=== PATIENT | female | born 1940 | race Caucasian/White ===

== ENCOUNTER 2017-03-19 11:43 | Emergency (ER) | payer MEDICARE, OTHER ==
[~2017-03-19] VITALS: Ht 162.6 cm; Wt 100.7 kg
[~2017-03-19 11:43] MED LIST: BUMETANIDE2 MG PO; BUPROPION XL150 MG PO; BYSTOLIC10 MG; BYSTOLIC10 MG PO; DICLOFENAC-MIS1 EAC2 PO; DOXAZOSIN MESYLA2 MG PO; DULOXETINE HCL30 MG PO; FLUOXETINE HCL40 MG PO; IBUPROFEN600 MG PO; K-TAB ER8 MEQ PO; LORATADINE10 MG PO; METOPROLOL TART25 MG PO; NEXIUM20 MG PO; NORTRIPTYLINE H10 MG PO; SYNTHROID50 MCG PO; VALSARTAN-HCTZ1 EACH PO; VENTOLIN HFA18 GM INH; ZITHROMAX250 MG PO
[2017-03-19] MEDS ORDERED: METHYLPREDNISOLO4 M1 PO (14:17)
[2017-03-19] MEDS ORDERED: NORCO 5-325 TA1 EACH PO (14:17)
[2017-07-24] MEDS ORDERED: WARFARIN SODIUM5 MG PO (10:51)
[2017-07-24] MEDS ORDERED: OMEPRAZOLE20 MG PO (10:51)
[2017-07-24] MEDS ORDERED: FUROSEMIDE20 MG PO (10:52)
[2017-07-24] MEDS ORDERED: METOPROLOL SUC100 MG PO (10:53)
== END 2017-03-19 14:22 | disposition home or self-care (01) ==
LOC: ED 11:43
DX: M16.0 Bilateral primary osteoarthritis of hip (principal); I11.0 Hypertensive heart disease with heart failure; I50.9 Heart failure, unspecified; Z90.710 Acquired absence of both cervix and uterus; Z88.8 Allergy status to other drugs, medicaments and biological substances; Z79.899 Other long term (current) drug therapy
CPT/HCPCS: 73502; 96372; 99283; J1885

== ENCOUNTER 2017-04-01 11:44 | Inpatient (IN) | payer MEDICARE, OTHER ==
[~2017-04-01] VITALS: Ht 162.6 cm; Wt 100.7 kg
[~2017-04-01 11:44] MED LIST changes: +METHYLPREDNISOLO4 M1 PO; +NORCO 5-325 TA1 EACH PO
[2017-04-01] MEDS ORDERED: TOPROL XL25 MG PO (12:02)
[2017-04-01] MEDS ORDERED: METFORMIN HCL500 M1 PO (12:02)
[2017-04-02] MEDS ORDERED: ARTHROTEC 75 M1 EACH PO (16:58)
[2017-04-02] MEDS ORDERED: NEXIUM40 MG PO (17:09)
[2017-04-02] MEDS ORDERED: NEXIUM40 MG (17:09)
[2017-04-02] MEDS ORDERED: PRESERVISION A1 EACH PO (17:09)
--- NOTE | 2017-04-02 22:42 | EKG ---
[facility] [address] [place], [place] [address] Signed Normal sinus rhythm Nonspecific ST and T wave abnormality Abnormal ECG No previous ECGs available Confirmed by NELY NIEVES MD ([id number]) on 04/02/2017 10:41:52 PM Electronically Signed By: NELY NIEVES MD 04/02/17 2242 PATIENT NAME: MAGUE CAMPBELL Electrocardiogram DATE OF : 44 PHYSICIAN: NELY NIEVES MD REPORT #: [id number] REPORT IS CONFIDENTIAL AND NOT TO BE RELEASED WITHOUT AUTHORIZATION
[2017-04-03] MEDS ORDERED: PLAVIX75 MG PO (11:37)
[2017-04-03] MEDS ORDERED: ASPIRIN EC81 MG PO (11:38)
[2017-04-03] MEDS ORDERED: LABETALOL HCL100 MG PO (11:38)
[2017-04-03] MEDS ORDERED: NORVASC5 MG PO (11:39)
[2017-04-03] MEDS ORDERED: LIPITOR20 MG PO (11:40)
[2017-07-24] MEDS ORDERED: WARFARIN SODIUM5 MG PO (10:51)
[2017-07-24] MEDS ORDERED: OMEPRAZOLE20 MG PO (10:51)
[2017-07-24] MEDS ORDERED: FUROSEMIDE20 MG PO (10:52)
[2017-07-24] MEDS ORDERED: METOPROLOL SUC100 MG PO (10:53)
== END 2017-04-03 15:00 | disposition home or self-care (01) | DRG 301 ==
LOC: ED 11:44 → MS 17:49
PROVIDERS: ADMIT Internal Medicine
DX: I77.74 Dissection of vertebral artery (principal); I16.0 Hypertensive urgency; I10 Essential (primary) hypertension; E03.9 Hypothyroidism, unspecified; E11.9 Type 2 diabetes mellitus without complications; E78.5 Hyperlipidemia, unspecified; F39 Unspecified mood [affective] disorder; M25.571 Pain in right ankle and joints of right foot; G89.29 Other chronic pain; R26.89 Other abnormalities of gait and mobility; Z79.84 Long term (current) use of oral hypoglycemic drugs
CPT/HCPCS: 70450; 70496; 70498; 73560; 73610; 80053; 80061; 84484; 85025; 93005; 93010; 97110; 97162; 97166; 97535; J1650; J2405; J7120; Q9967

== ENCOUNTER 2017-10-12 13:33 | Emergency (ER) | payer MEDICARE, OTHER ==
[~2017-10-12] VITALS: Ht 162.6 cm; Wt 100.7 kg
[~2017-10-12 13:33] MED LIST changes: +ARTHROTEC 75 M1 EACH PO; +ASPIRIN EC81 MG PO; +FUROSEMIDE20 MG PO; +LABETALOL HCL100 MG PO; +LIPITOR20 MG PO; +METFORMIN HCL500 M1 PO; +METOPROLOL SUC100 MG PO; +NEXIUM40 MG; +NEXIUM40 MG PO; +NORVASC5 MG PO; +OMEPRAZOLE20 MG PO; +PLAVIX75 MG PO; +PRESERVISION A1 EACH PO; +TOPROL XL25 MG PO; +WARFARIN SODIUM5 MG PO
== END 2017-10-12 15:13 | disposition home or self-care (01) ==
LOC: ED 13:33
DX: S93.401A Sprain of unspecified ligament of right ankle, initial encounter (principal); I11.0 Hypertensive heart disease with heart failure; I50.9 Heart failure, unspecified; Z79.899 Other long term (current) drug therapy; W19.XXXA Unspecified fall, initial encounter
CPT/HCPCS: 73502; 73560; 73610; 99283

== ENCOUNTER 2017-10-22 12:25 | Emergency (ER) | payer MEDICARE, OTHER ==
[~2017-10-22] VITALS: Ht 162.6 cm; Wt 105.0 kg
--- OUTSIDE RECORDS SUMMARY | 2017-10-22 12:30 | XMS ---
PreManage Notification: MAGUE CAMPBELL Security Heel Compressor Events No recent Security Events currently on file CRITERIA MET - [facility] - 2 Visits in 30 Days CARE PROVIDERS Ehsan Jenkins Primary Care Joyce MONAHAN PHONE: Unknown Carl Craven Primary Care Current PHONE: [phone] orchristen Case or Improvement Spec Current PHONE: Unknown Emily Rosales Current Orthopedic Surgery \T\ Fracture Clinic PHONE: Unknown Robert has no Care Guidelines for this patient. Nisha VISIT COUNT (12 MO.) 4 [facility] TOTAL 4 NOTE: Visits indicate total known visits. ED/UCC VISIT TRACKING (12 MO.) 10/22/2017 12:26 [facility] [place] TYPE: Emergency COMPLAINT: - NAUSEA/DIZZINESS 10/12/2017 13:33 [facility] [place] TYPE: Emergency COMPLAINT: - FALL/RT KNEE PAIN DIAGNOSES: - Hypertensive heart disease with heart failure - Other residential (current) drug therapy - Heart failure, unspecified - Unspecified fall, initial encounter - Unspecified injury of right lower leg, initial encounter - Sprain of unspecified ligament of right ankle, initial encounter - Pain in right ankle and joints of right foot 04/01/2017 11:44 [facility] [place] TYPE: Emergency COMPLAINT: - DIZZINESS 03/19/2017 11:44 [facility] [place] TYPE: Emergency COMPLAINT: - R HIP PAIN DIAGNOSES: - Allergy status to other drugs, medicaments and biological substances status - Pain in right hip - Heart failure, unspecified - Acquired absence of both cervix and uterus - Bilateral primary osteoarthritis of hip - Other residential (current) drug therapy - Hypertensive heart disease with heart failure INPATIENT VISIT TRACKING (12 MO.) No inpatient visits to display in this time frame [id number]
--- NOTE | 2017-10-22 15:14 | EKG ---
[facility] [address] [place] [address] Signed Atrial fibrillation with premature ventricular or aberrantly conducted complexes Abnormal ECG When compared with ECG of 01-APR-2017 11:59, Atrial fibrillation has replaced Sinus rhythm Confirmed by NELY NIEVES MD ([id number]) on 10/22/2017 3:13:59 PM Electronically Signed By: NELY NIEVES MD 10/22/17 1514 PATIENT NAME: SHANNANMAGUE GEORGES Electrocardiogram DATE OF : 44 PHYSICIAN: NELY NIEVES MD REPORT #: [id number] REPORT IS CONFIDENTIAL AND NOT TO BE RELEASED WITHOUT AUTHORIZATION
== END 2017-10-22 17:01 | disposition home or self-care (01) ==
LOC: ED 12:25
DX: I77.74 Dissection of vertebral artery (principal); I48.91 Unspecified atrial fibrillation; R42 Dizziness and giddiness; I11.0 Hypertensive heart disease with heart failure; I50.9 Heart failure, unspecified; E11.9 Type 2 diabetes mellitus without complications; Z88.8 Allergy status to other drugs, medicaments and biological substances; Z79.899 Other long term (current) drug therapy; Z79.01 Long term (current) use of anticoagulants; Z79.84 Long term (current) use of oral hypoglycemic drugs
CPT/HCPCS: 70496; 80053; 85025; 85610; 93005; 93010; 96374; 99284; J2405; Q9967

== ENCOUNTER 2018-08-13 15:24 | Emergency (ER) | payer MEDICARE, OTHER ==
[~2018-08-13] VITALS: Ht 154.9 cm; Wt 108.4 kg
[~2018-08-13 15:24] MED LIST changes: +COMBIVENT RESPIM4 GM INH; +DOXYCYCLINE HY100 MG PO; +GABAPENTIN100 MG PO; +PREDNISONE20 MG PO
--- OUTSIDE RECORDS SUMMARY | 2018-08-13 15:26 | XMS ---
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 Care History Medical/Surgical 10/23/2017 [facility] - Patient is currently established with [facility]. If patient is seen in the ED during business hours. Please contact CHWs at [facility]. Care Recommendation: This patient has had 5 or more Emergency Department visits in the last 12 months.\T\nbsp; Patient requires education on the scope and purpose of the ED as an acute care provider not a Primary Care Provider and should not be utilized for chronic conditions.\T\nbsp; These are guidelines and the provider should exercise clinical judgment when providing care. E.D. VISIT COUNT (12 MO.) 4 [facility]. TOTAL 4 NOTE: Visits indicate total known visits. ED/UCC VISIT TRACKING (12 MO.) 08/13/2018 15:25 [facility] [place] TYPE: Emergency COMPLAINT: - RIGHT BIG TOE INFECTION 02/03/2018 15:46 [facility] [place] TYPE: Emergency COMPLAINT: - COUGH,DIFFICULTY BREATHING DIAGNOSES: - Allergy status to other drugs, medicaments and biological substances status - Chronic obstructive pulmonary disease with (acute) exacerbation - Type 2 diabetes mellitus without complications - terminal supervisor (current) use of oral hypoglycemic drugs - Shortness of breath - senior care (current) use of anticoagulants - Hypertensive heart disease with heart failure - Heart failure, unspecified - Other fci (current) drug therapy 10/22/2017 12:26 [facility] [place] TYPE: Emergency COMPLAINT: - NAUSEA/DIZZINESS DIAGNOSES: - senior care (current) use of oral hypoglycemic drugs - Dissection of vertebral artery - Type 2 diabetes mellitus without complications - terminal supervisor (current) use of anticoagulants - Hypertensive heart disease with heart failure - Heart failure, unspecified - Allergy status to other drugs, medicaments and biological substances status - Other long term care pharmacist (current) drug therapy - Unspecified atrial fibrillation - Dizziness and giddiness 10/12/2017 13:[address] [facility] [place] TYPE: Emergency COMPLAINT: - FALL/RT KNEE PAIN DIAGNOSES: - Hypertensive heart disease with heart failure - Other fci (current) drug therapy - Heart failure, unspecified - Unspecified fall, initial encounter - Unspecified injury of right lower leg, initial encounter - Sprain of unspecified ligament of right ankle, initial encounter - Pain in right ankle and joints of right foot INPATIENT VISIT TRACKING (12 MO.) No inpatient visits to display in this time frame [id number]
[2018-08-13] MEDS ORDERED: AUGMENTIN 875-1 EACH PO (16:40)
== END 2018-08-13 16:52 | disposition home or self-care (01) ==
LOC: ED 15:24
DX: L03.031 Cellulitis of right toe (principal); I11.0 Hypertensive heart disease with heart failure; I50.9 Heart failure, unspecified; E11.9 Type 2 diabetes mellitus without complications; Z90.710 Acquired absence of both cervix and uterus; Z88.8 Allergy status to other drugs, medicaments and biological substances; Z79.899 Other long term (current) drug therapy; Z79.01 Long term (current) use of anticoagulants
CPT/HCPCS: 99283

== ENCOUNTER 2021-11-20 08:15 | Emergency (ER) | payer MEDICARE, OTHER, MEDICAID ==
[~2021-11-20] VITALS: Ht 154.9 cm; Wt 108.4 kg
[~2021-11-20 08:15] MED LIST changes: +AUGMENTIN 875-1 EACH PO; +BUPROPION HCL200 MG PO; +KEFLEX500 MG PO; +METFORMIN HCL1000 MG PO; +OXYBUTYNIN CHLO10 MG PO
--- OUTSIDE RECORDS SUMMARY | 2021-11-20 08:18 | XMS ---
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 Care History Medical/Surgical 02/22/2019 [facility] Updated patient contact phone number with Clinic file.\T\nbsp; Patient will call to schedule follow up visit.\T\nbsp; 10/23/2017 [facility] - Patient is currently established with [facility]. If patient is seen in the ED during business hours. Please contact CHWs at [facility]. Care Recommendation: If this patient has had 5 or more Emergency Department visits in the last 12 months.\T\nbsp; Patient will require education on the scope and purpose of the ED as an acute care provider not a Primary Care Provider and should not be utilized for chronic conditions.\T\nbsp; These are guidelines and the provider should exercise clinical judgment when providing care. E.D. VISIT COUNT (12 MO.) 1 [facility] TOTAL 1 NOTE: Visits indicate total known visits. ED/UCC VISIT TRACKING (12 MO.) 11/20/2021 08:16 [facility] [place] TYPE: Emergency COMPLAINT: - CHEST PAIN,LT ARM PAIN INPATIENT VISIT TRACKING (12 MO.) No inpatient visits to display in this time frame [id number]
[2021-11-20] MEDS ORDERED: MAGNESIUM400 MG PO (09:21)
[2021-11-20] MEDS ORDERED: CEPHALEXIN500 M1 PO (09:53)
--- NOTE | 2021-11-20 21:54 | EKG ---
[facility] [address] [place] [facility] [address] [place], [place] [address] Signed Atrial fibrillation Nonspecific ST and T wave abnormality Abnormal ECG When compared with ECG of 03-FEB-2018 16:03, QT has shortened Confirmed by ERNIE CORNEJO MD ([id number]) on 11/20/2021 9:54:26 PM Electronically Signed By: ERNIE CORNEJO MD 11/20/21 2154 PATIENT NAME: MAGUE CAMPBELL Electrocardiogram DATE OF : 44 PHYSICIAN: ERNIE CORNEJO MD REPORT #: [id number] REPORT IS CONFIDENTIAL AND NOT TO BE RELEASED WITHOUT AUTHORIZATION
== END 2021-11-20 09:40 | disposition home or self-care (01) ==
LOC: ED 08:15
DX: R07.89 Other chest pain (principal); I48.0 Paroxysmal atrial fibrillation; N39.0 Urinary tract infection, site not specified; I11.0 Hypertensive heart disease with heart failure; I50.9 Heart failure, unspecified; E11.9 Type 2 diabetes mellitus without complications; Z88.8 Allergy status to other drugs, medicaments and biological substances; Z79.899 Other long term (current) drug therapy; Z79.01 Long term (current) use of anticoagulants
CPT/HCPCS: 36415; 71045; 80053; 81001; 83735; 84484; 85025; 87088; 87186; 93005; 93010

== ENCOUNTER 2022-03-14 15:43 | Emergency (ER) | payer MEDICARE, OTHER, MEDICAID ==
[~2022-03-14] VITALS: Ht 154.9 cm; Wt 108.4 kg
[~2022-03-14 15:43] MED LIST changes: +CEPHALEXIN500 M1 PO; +MAGNESIUM400 MG PO
--- OUTSIDE RECORDS SUMMARY | 2022-03-14 15:44 | XMS ---
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 Care History Medical/Surgical 02/22/2019 [facility] Updated patient contact phone number with Clinic file.\T\nbsp; Patient will call to schedule follow up visit.\T\nbsp; 10/23/2017 [facility] - Patient is currently established with [facility]. If patient is seen in the ED during business hours. Please contact CHWs at [facility]. Care Recommendation: If this patient [...] providing care. E.D. VISIT COUNT (12 MO.) 2 [facility] TOTAL 2 NOTE: Visits indicate total known visits. ED/UCC VISIT TRACKING (12 MO.) 03/14/2022 15:43 [facility] [place] TYPE: Emergency COMPLAINT: - FALL 11/20/2021 08:16 [facility] [place] TYPE: Emergency COMPLAINT: - CHEST PAIN,LT ARM PAIN DIAGNOSES: - Other chest pain - Urinary tract infection, site not specified - Other exterminator termite (current) drug therapy - exterminator termite (current) use of anticoagulants - Hypertensive heart disease with heart failure - Allergy status to other drugs, medicaments and biological substances - Heart failure, unspecified - Type 2 diabetes mellitus without complications - Paroxysmal atrial fibrillation INPATIENT VISIT TRACKING (12 MO.) No inpatient visits to display in this time frame [id number]
--- NOTE | 2022-03-14 20:54 | EKG ---
[facility] [address] [place] [address] Signed Atrial flutter with variable AV block Nonspecific ST and T wave abnormality Abnormal ECG When compared with ECG of 20-NOV-2021 08:13, Atrial flutter has replaced Atrial fibrillation Non-specific change in ST segment in Inferior leads Nonspecific T wave abnormality, worse in Inferior leads Nonspecific T wave abnormality no longer evident in Lateral leads Confirmed by Keshav Owens MD () on 03/14/2022 8:54:38 PM Electronically Signed By: KESHAV OWENS MD 03/14/222053 PATIENT NAME: MAGUE CAMPBELL Electrocardiogram DATE OF : 44 PHYSICIAN: KESHAV OWENS MD REPORT #: [id number] REPORT IS CONFIDENTIAL AND NOT TO BE RELEASED WITHOUT AUTHORIZATION
== END 2022-03-14 18:28 | disposition home or self-care (01) ==
LOC: ED 15:43
DX: S43.401A Unspecified sprain of right shoulder joint, initial encounter (principal); S60.211A Contusion of right wrist, initial encounter; I11.0 Hypertensive heart disease with heart failure; I50.9 Heart failure, unspecified; E11.9 Type 2 diabetes mellitus without complications; Z88.8 Allergy status to other drugs, medicaments and biological substances; Z79.899 Other long term (current) drug therapy; Z79.01 Long term (current) use of anticoagulants; Z79.84 Long term (current) use of oral hypoglycemic drugs; W01.0XXA Fall on same level from slipping, tripping and stumbling without subsequent striking against object, initial encounter
CPT/HCPCS: 36415; 72131; 72170; 73030; 73110; 73552; 80048; 85025; 85610; 93005; 93010; 99284-25; A9270

== ENCOUNTER 2022-12-30 09:28 | Emergency (ER) | payer MEDICARE, OTHER ==
[~2022-12-30] VITALS: Ht 154.9 cm; Wt 87.5 kg
[~2022-12-30 09:28] MED LIST changes: +CELECOXIB100 MG PO
[2022-12-30] MEDS ORDERED: CEPHALEXIN500 M1 PO (10:08)
[2022-12-30 10:18] VITALS: BP 153/70
== END 2022-12-30 10:37 | disposition home or self-care (01) ==
LOC: ED 09:28
DX: L03.115 Cellulitis of right lower limb (principal); L30.9 Dermatitis, unspecified; E11.9 Type 2 diabetes mellitus without complications; I11.0 Hypertensive heart disease with heart failure; I50.9 Heart failure, unspecified; Z88.8 Allergy status to other drugs, medicaments and biological substances; Z79.84 Long term (current) use of oral hypoglycemic drugs; Z79.899 Other long term (current) drug therapy; Z79.01 Long term (current) use of anticoagulants
CPT/HCPCS: A9270

== ENCOUNTER 2023-03-10 14:49 | Inpatient (IN) | payer MEDICARE, MEDICAID ==
[~2023-03-10] VITALS: Ht 154.9 cm; Wt 89.6 kg
[2023-03-10 19:54] LABS: BASOPHILS 1.4 % (0-2); EOSINOPHILS 3.1 % (0-6); HEMATOCRIT 36.4 % (35.0-50.0); LYMPHOCYTES 25.8 % (24-44); MCH 28.8 (27-36); MCHC 32.9 g/dl (30-36); MCV 87.7 fl (81-99); MONOCYTES 11.3 % (0-12); NEUTROPHILS 58.4 % (39-80); PLATELET COUNT 338 K/uL (140-440); RBC 4.16 M/ul (4.3-5.7); RDW 17.4 (10.5-15.0)
[2023-03-10 20:07] LABS: ALBUMIN 2.9 g/dL (3.4-5.0); ALBUMIN/GLOBULIN RATIO 0.78 (1.1-2.4); ANION GAP 16.6 (7-21); BILIRUBIN, TOTAL 0.3 ng/dL (0.2-1.0); BUN/CREATININE RATIO 23.14 (6.0-28.6); CALCIUM 9.3 mg/dL (8.5-10.1); CREATININE, SERUM 1.21 mg/dL (0.55-1.02); POTASSIUM 4.6 mmol/L (3.5-5.1); PROTEIN, TOTAL 6.6 g/dL (6.4-8.2)
[2023-03-10 23:27] VITALS: BP 143/95
[2023-03-11] VITALS (10 sets, daily range): BP systolic 103–150; BP diastolic 54–106
[2023-03-11 05:49] LABS: BASOPHILS 1.1 % (0-2); EOSINOPHILS 3.2 % (0-6); HEMATOCRIT 34.7 % (35.0-50.0); HEMOGLOBIN 11.2 g/dL (12.0-18.0); LYMPHOCYTES 28.3 % (24-44); MCH 28.1 (27-36); MCHC 32.2 g/dl (30-36); MCV 87.4 fl (81-99); MONOCYTES 13.4 % (0-12); PLATELET COUNT 317 K/uL (140-440); RBC 3.97 M/ul (4.3-5.7); RDW 17.6 (10.5-15.0)
[2023-03-11 05:59] LABS: INR 2.76 (0.80-1.30); PROTIME 28.8 Sec (11.2-14.2)
[2023-03-11 06:04] LABS: ALBUMIN 2.7 g/dL (3.4-5.0); ALBUMIN/GLOBULIN RATIO 0.79 (1.1-2.4); ANION GAP 11.2 (7-21); BILIRUBIN, TOTAL 0.6 ng/dL (0.2-1.0); BUN/CREATININE RATIO 22.22 (6.0-28.6); CALCIUM 9.3 mg/dL (8.5-10.1); CREATININE, SERUM 0.99 mg/dL (0.55-1.02); MAGNESIUM 1.8 mg/dL (1.8-2.4); PHOSPHORUS, INORGANIC 4.4 mg/dL (2.5-4.9); POTASSIUM 4.2 mmol/L (3.5-5.1); PROTEIN, TOTAL 6.1 g/dL (6.4-8.2)
--- NOTE | 2023-03-11 07:25 | NUR ---
HANDOFF REPORT RECEIVED FROM RIBBON WINDER RN. PT RESTING IN BED, ASSISTED TO TURN CELL PHONE OFF SHE IS REQUESTING TO REST. PT DENIES OTHER NEEDS AT THIS TIME.
--- NOTE | 2023-03-11 07:44 | NUR ---
UR NOTE [facility] ([facility]) 03/10/23 MET CLINICAL INDICATIONS FOR PROCEDURE STAGE 1 AND 2
[2023-03-11] MEDS ORDERED: HYDROCODON-ACE1 EAC8 PO (08:13)
[2023-03-11] MEDS ORDERED: LEVOFLOXACIN750 MG PO (08:14)
[2023-03-11] MEDS ORDERED: VITAMIN D31250 MC1 PO (08:15)
[2023-03-11] MEDS ORDERED: DULOXETINE HCL60 MG PO (08:20)
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
--- NOTE | 2023-03-11 10:15 | NUR ---
PT SITTING IN CHAIR. MORNING ASSESSMENT COMPLETED. PT ON ROOM AIR, LUNG SOUNDS CLEAR, DENIES SOB. PT RATING PAIN 5/10 AT THIS TIME, REQUESTING PAIN MEDICATION. BOWEL TONES ACTIVE, DENIES NAUSEA, TOLERATED BREAKFAST. IV FLUIDS INFUSING LR AT 100ML/HR. DISCUSSED PLAN OF CARE, COUND CONSULT TO BE COMPLETED AFTER PREMEDICATION FOR PAIN. PT DENIES OTHER NEEDS AT THIS TIME.
[2023-03-11] MEDS ORDERED: MYRBETRIQ25 MG PO (10:29)
--- NOTE | 2023-03-11 10:30 | NUR ---
WOUND CONSULT COMPLETED TO RIGHT LOWER LEG WOUND. DRESSING REMOVED, DRESSING ADHERED IN SOME AREEAS, SOAKED WITH WOUND CLEANSER TO RELEASE. SCAN AMOUNT OF SEROUS/YELLOW DRAINAGE. WOUND MEASURED 5.5X7.3X0.1CM. WOUND BASE 95% MIX OF GRANULATION TISSUE AND YELLOW ADHERENT SLOUGH. PT WITH SIGNIFICANT PAIN IN LEG, TREATED WITH 2MG IV MORPHINE FOR BREAKTHROUGH PAIN. WOUND CLEANSED WITH WOUND SPRAY AND DEBRISOFT LOLLY. MEDIHONEY APPLIED, COVERED WITH ADAPTIC AND ABD, SECURED WITH GAUZE ROLL. DISCUSSED WOUND CARE RECOMMENDATIONS WITH TIANA MONAHAN TO CONTINUE.
[2023-03-11] MEDS ORDERED: IRON325 M1 PO (10:31)
[2023-03-11] MEDS ORDERED: MAGOX 400400 MG PO (10:31)
[2023-03-11] MEDS ORDERED: CALCIUM 500 MG1 EAC6 PO (10:31)
--- NOTE | 2023-03-11 10:32 | NUR ---
MED REC COMPLETE
--- NOTE | 2023-03-11 15:00 | NUR ---
Pts DIL, Donnie stopped in. She is requesting placement to SNF for wound care. She plans on working with [facility] for [employer] Medicaid as pt is low income and will not have funds to pay for a memory. Donnie would like Lara to go to the Memory at [facility] when she completes a 21 day stay at a SNF.
--- NOTE | 2023-03-11 15:55 | NUR ---
PT ASSISTED TO BATHROOM, INCONTINENT OF URINE, LARGE AMOUNT, PERICARE COMPLETED. PT NOW RESTING IN BED, PUREWICK IN PLACE. PT STATES PAIN IS BETTER BUT FEELS LOOPY AFTER PAIN MEDICATION, BED ALARM IN PLACE.
--- NOTE | 2023-03-11 16:57 | NUR ---
PT RESTING IN BED. BG 133, INSULIN HELD. PT GIVEN COUMADIN AND CULTURELLE. PT DENIES OTHER NEEDS AT THIS TIME.
--- NOTE | 2023-03-11 20:25 | NUR ---
PATIENT PROVIDED WITH ENSURE VANILLA FLAVOR.
[2023-03-12] VITALS (10 sets, daily range): BP systolic 114–160; BP diastolic 69–98
[2023-03-12 05:43] LABS: BASOPHILS 0.3 % (0-2); EOSINOPHILS 4.6 % (0-6); HEMATOCRIT 32.7 % (35.0-50.0); HEMOGLOBIN 10.7 g/dL (12.0-18.0); LYMPHOCYTES 28.9 % (24-44); MCH 28.5 (27-36); MCHC 32.8 g/dl (30-36); MCV 86.8 fl (81-99); MONOCYTES 13.5 % (0-12); NEUTROPHILS 52.7 % (39-80); PLATELET COUNT 291 K/uL (140-440); RBC 3.77 M/ul (4.3-5.7); RDW 17.3 (10.5-15.0)
[2023-03-12 06:01] LABS: INR 2.64 (0.80-1.30); PROTIME 27.8 Sec (11.2-14.2)
[2023-03-12 06:03] LABS: ALBUMIN 2.5 g/dL (3.4-5.0); ALBUMIN/GLOBULIN RATIO 0.76 (1.1-2.4); BILIRUBIN, TOTAL 0.8 ng/dL (0.2-1.0); BUN/CREATININE RATIO 24.05 (6.0-28.6); CALCIUM 9.2 mg/dL (8.5-10.1); CREATININE, SERUM 0.79 mg/dL (0.55-1.02); PROTEIN, TOTAL 5.8 g/dL (6.4-8.2)
--- NOTE | 2023-03-12 07:10 | NUR ---
HANDOFF REPORT RECEIVED FROM HAT CONE INSPECTOR RN. PT RESTING IN BED, RATES PAIN 5/10, RECENTLY RECEIVED PAIN MEDICATION. PT DENIES NEEDS AT THIS TIME.
--- NOTE | 2023-03-12 08:09 | NUR ---
Chart faxed to [facility] and [facility] requesting placement. Attempted to call Donnie with update, but unable to reach. Phone does not have voice male.
--- NOTE | 2023-03-12 08:38 | NUR ---
PT ASSISTED TO CHAIR FOR BREAKFAST. PT ON ROOM AIR, LUNG SOUNDS CLEAR, DENIES SOB. HR IRREGULAR. BOWEL TONES ACTIVE, DENIES NAUSEA. PT WITHOUT EDEMA, CMS INTACT. PT WITH DRESSING TO RIGHT LOWER LEG, PLAN TO REPLACE THIS AM. IV FLUIDS AND ZOSYN INFUSING. MEDICATIONS ADMINISTERED PER EMAR. PT DENIES OTHER NEEDS AT THIS TIME.
--- NOTE | 2023-03-12 10:00 | NUR ---
Called and spoke with Bee at [facility]. Updated family are looking for assistance for funds for placement to Memory Care. I am attempting placement to a SNF for 20 days as pt is weak and needs wound care. She asks the pt call her. I went to pts room and planned on dialing for her. She is getting a dressing change and the Rn states she will dial for her when dressing is completed.
--- NOTE | 2023-03-12 11:33 | NUR ---
DRESSING CHANGED TO RLE WOUND, WOUND WITH LESS SLOUGH THAN YESTERDAY, ERRYTHEMA HAS LESSENED. PT REQUESTING PAIN MEDICATION AFTER DRESSING CHANGE, GIVEN 5MG PO OXYCODONE AND 650MG TYLENOL. PT ASSISTED TO MAKE CALL TO [facility] FOR [facility] MEDICARE APPLICATION.
--- NOTE | 2023-03-12 12:46 | NUR ---
DISCUSSED IV FLUIDS WITH DR. OWENS, HX OF CHF BUT NO CURRENT S/S OF FLUID OVERLOAD, IV FLUIDS DISCONTINUED. IV SALINE LOCKED.
--- NOTE | 2023-03-12 13:40 | NUR ---
Notified by Joyce at [facility] they can accept this pt tomorrow. They would like her there by 10:00 and will need a covid test. I attempted to call Donnie to check if she will transport or would like to pay for a wc van. Message left at [facility] as Donnie is in a meeting.
--- NOTE | 2023-03-12 14:31 | NUR ---
Covid test ordered as requested by [facility].
--- NOTE | 2023-03-12 14:37 | NUR ---
Dr Philip notified pt has been accepted. He will complete order. He and charge nurse notified [facility] would like her there at 10:00 am.
--- NOTE | 2023-03-12 14:50 | NUR ---
PT ASSISTED TO BATHROOM AND THEN BED. IV ZOSYN INFUSION STARTED. PT REPORTING PAIN 5/10, GIVEN 5MG OXYCODONE, ASPERCREME APPLIED TO RIGHT 5TH TOE AND RIGHT KNEE. PT DENIES OTHER NEEDS AT THIS TIME.
--- NOTE | 2023-03-12 16:30 | NUR ---
PT RESTING IN BED. PT GIVEN COUMADIN PER EMAR. BG WNL, SS HUMALOG HELD. PT DENIES OTHER NEEDS AT THIS TIME.
--- NOTE | 2023-03-12 21:02 | NUR ---
PT ABLE TO SCOOT SELF UP IN BED, BS COMPLETED, OFFERED FRESH WATER SHE DECLINED. EMPTIED GARBAGE, FRESH PERSONAL GARBAGE BAG REPLACED. NO OTHER NEEDS AT THIS TIME.
[2023-03-12] MEDS ORDERED: BACTRIM DS TAB1 EACH PO (21:32)
[2023-03-12] MEDS ORDERED: CIPROFLOXACIN750 MG PO (21:33)
[2023-03-13 06:18] LABS: BASOPHILS 0.8 % (0-2); EOSINOPHILS 4.4 % (0-6); HEMATOCRIT 32.3 % (35.0-50.0); HEMOGLOBIN 10.9 g/dL (12.0-18.0); LYMPHOCYTES 19.7 % (24-44); MCH 29.1 (27-36); MCHC 33.7 g/dl (30-36); MCV 86.6 fl (81-99); MONOCYTES 12.1 % (0-12); PLATELET COUNT 289 K/uL (140-440); RBC 3.73 M/ul (4.3-5.7); RDW 17.4 (10.5-15.0)
[2023-03-13 06:29] LABS: INR 2.38 (0.80-1.30)
[2023-03-13 06:35] VITALS: BP 140/79
[2023-03-13 06:43] LABS: ALBUMIN 2.6 g/dL (3.4-5.0); ALBUMIN/GLOBULIN RATIO 0.76 (1.1-2.4); ANION GAP 12.8 (7-21); BILIRUBIN, TOTAL 0.6 ng/dL (0.2-1.0); BUN/CREATININE RATIO 20.93 (6.0-28.6); CREATININE, SERUM 0.86 mg/dL (0.55-1.02); POTASSIUM 3.8 mmol/L (3.5-5.1)
--- NOTE | 2023-03-13 07:40 | NUR ---
Received a call from a man stating his is the POA and pt cannot go to [facility]. Pt needs to go to [facility]. Attempted to explain her chart was sent to [facility] and reviewed by admissions and nursing. Pt was declined as they do not have beds. He states he just spoke with someone and was assured they have beds. I again let him know I was told yesterday there would not be any beds available until the end of next week. This is why she was scheduled to go to [facility]. This was discussed with Lara and Donnie. Both were in agreement. I let him know I can give him a letter and phone number to appeal. I explained the appeal process and he feels this would be a lot of paperwork. Dr. Philip updated. Plan remains for Donnie to transport Lara to [facility]. LYUDMILA from [facility] was then notified staff have told this family there is a room open. He replied he spoke with staff. There is not a bed open today.
--- NOTE | 2023-03-13 08:00 | NUR ---
H&P, Draft DC summary, PASRR, MED orders, wound orders, - Covid test faxed to Joyce at [facility].
--- NOTE | 2023-03-13 08:22 | NUR ---
Patient in bed eating breakfast. Patient administered 1 unit of insulin, a CBG of 154. Patients wound dressing clean, dry, and intact to RLE. Patients skin to bilateral legs warm and dry. Pedal pulse WNL. Call light and personal items within reach. No other needs at this time.
[2023-03-13 08:37] VITALS: BP 128/87
== END 2023-03-13 09:20 | disposition home or self-care (01) | DRG 603 ==
LOC: ED 14:49 → MS 21:45
PROVIDERS: Internal Medicine; ADMIT Family Medicine; ATTEND Family Medicine
DX: L03.115 Cellulitis of right lower limb (principal); E11.9 Type 2 diabetes mellitus without complications; I48.91 Unspecified atrial fibrillation; M79.604 Pain in right leg; I11.0 Hypertensive heart disease with heart failure; I50.9 Heart failure, unspecified; M19.90 Unspecified osteoarthritis, unspecified site; F03.90 Unspecified dementia, unspecified severity, without behavioral disturbance, psychotic disturbance, mood disturbance, and anxiety; Z90.710 Acquired absence of both cervix and uterus; Z79.899 Other long term (current) drug therapy; Z79.01 Long term (current) use of anticoagulants; Z88.8 Allergy status to other drugs, medicaments and biological substances; Z79.84 Long term (current) use of oral hypoglycemic drugs; Z79.890 Hormone replacement therapy; Z90.49 Acquired absence of other specified parts of digestive tract; Z11.52 Encounter for screening for COVID-19
CPT/HCPCS: 36415; 73590; 80053; 83735; 84100; 85025; 85379; 85610; 96374; 97161; 97166; 97535; 99285-25; A9270; J0878; J1815; J2270; J2543; J7121; U0002

== ENCOUNTER 2024-08-30 15:40 | Emergency (ER) | payer MEDICARE, OTHER ==
[~2024-08-30] VITALS: Ht 154.9 cm; Wt 98.5 kg
[~2024-08-30 15:40] MED LIST changes: +BACTRIM DS TAB1 EACH PO; +CALCIUM 500 MG1 EAC6 PO; +CEPHALEXIN500 MG PO; +CIPROFLOXACIN750 MG PO; +DULOXETINE HCL60 MG PO; +ELIQUIS5 MG PO; +HYDROCODON-ACE1 EAC8 PO; +IRON325 M1 PO; +LEVOFLOXACIN750 MG PO; +LISINOPRIL5 MG PO; +MAGOX 400400 MG PO; +MYRBETRIQ25 MG PO; +OXYCODONE HCL5 MG PO; +VITAMIN D31250 MC1 PO
[2024-08-30] MEDS ORDERED: SODIUM CHLORIDE 0.9% 1,000 ML IV ONE (16:15)
[2024-08-30 16:32] LABS: BASOPHILS 0.4 % (0.1-1.2); EOSINOPHILS 0.4 % (0.7-5.8); LYMPHOCYTES 10.1 % (19.3-51.7); MCH 28.3 PG (25.6-32.2); MCHC 32.4 g/dL (32.2-35.5); MCV 87.6 fL (79.4-94.8); MONOCYTES 12.0 % (4.7-12.5); NEUTROPHILS 76.6 % (34.0-71.1); RBC 4.34 M/uL (3.93-5.22)
[2024-08-30 16:47] LABS: ALT (SGPT) 17.0 U/L (14-59); AST (SGOT) 25.0 U/L (15-37); GLOMERULAR FILTRATION RATE,EST 49.0 mL/min (>60); PROTEIN, TOTAL 6.4 g/dL (6.4-8.2); UREA NITROGEN 22.0 mg/dL (7-18)
[2024-08-30 17:13] LABS: BLOOD/HGB, URINE MODERATE (Negative); KETONE, URINE NEGATIVE (Negative); LEUK ESTERASE, URINE MODERATE (negative); NITRITE, URINE POSITIVE (negative)
[2024-08-30 17:22] LABS: BACTERIA, URINE 1+ /hpf (negative); CASTS, URINE NONE SEEN \\lpf; CRYSTALS, URINE NONE SEEN (0-1+); EPITHELIAL CELLS, URINE SQUAMOUS 1+ /lpf (0-1+); REFLEX CULTURE, URINE Yes (No)
[2024-08-30] MEDS ORDERED: MACROBID 100 M100 MG PO (18:00)
[2024-08-30] MEDS ORDERED: NITROFURANTOIN MONOHYD MACROCR 100 MG CAP PO ONE (18:00)
[2024-08-30 18:15] VITALS: BP 123/62
== END 2024-08-30 18:15 | disposition home or self-care (01) ==
LOC: ED 15:40
PROVIDERS: Emergency Medicine
DX: N39.0 Urinary tract infection, site not specified (principal); I11.0 Hypertensive heart disease with heart failure; E11.9 Type 2 diabetes mellitus without complications; I50.9 Heart failure, unspecified; Z79.899 Other long term (current) drug therapy; Z79.2 Long term (current) use of antibiotics
CPT/HCPCS: 36415; 71045; 80053; 81001; 85025; 87088; 96374; 99285-25; J2405; J7030

== ENCOUNTER 2024-10-14 10:17 | Emergency (ER) | payer MEDICARE, OTHER ==
[~2024-10-14] VITALS: Ht 154.9 cm; Wt 94.9 kg
[~2024-10-14 10:17] MED LIST changes: +MACROBID 100 M100 MG PO
[2024-10-14] MEDS ORDERED: METFORMIN HCL500 M1 PO (10:28)
[2024-10-14] MEDS ORDERED: LEVOTHYROXINE50 MCG PO (10:28)
[2024-10-14] MEDS ORDERED: LAMOTRIGINE25 MG PO (10:28)
[2024-10-14] MEDS ORDERED: ATORVASTATIN CA20 MG PO (10:28)
[2024-10-14 10:45] LABS: BASOPHILS 0.7 % (0.1-1.2); EOSINOPHILS 0.8 % (0.7-5.8); LYMPHOCYTES 15.1 % (19.3-51.7); MCH 28.0 PG (25.6-32.2); MCHC 32.0 g/dL (32.2-35.5); MCV 87.6 fL (79.4-94.8); MONOCYTES 12.0 % (4.7-12.5); NEUTROPHILS 71.1 % (34.0-71.1); RBC 4.10 M/uL (3.93-5.22)
[2024-10-14 11:01] LABS: ALT (SGPT) 8.0 U/L (14-59); AST (SGOT) 16.0 U/L (15-37); GLOMERULAR FILTRATION RATE,EST 44.0 mL/min (>60); PROTEIN, TOTAL 6.5 g/dL (6.4-8.2); UREA NITROGEN 17.0 mg/dL (7-18)
[2024-10-14 13:02] LABS: BLOOD/HGB, URINE SMALL (Negative); KETONE, URINE NEGATIVE (Negative); LEUK ESTERASE, URINE LARGE (negative); NITRITE, URINE POSITIVE (negative)
[2024-10-14 13:11] LABS: BACTERIA, URINE 1+ /hpf (negative); CASTS, URINE NONE SEEN \\lpf; CRYSTALS, URINE NONE SEEN (0-1+); EPITHELIAL CELLS, URINE 0 /lpf (0-1+); REFLEX CULTURE, URINE Yes (No)
[2024-10-14] MEDS ORDERED: CEPHALEXIN500 MG PO (13:22)
[2024-10-14] MEDS ORDERED: SODIUM CHLORIDE 0.9% 500 ML IV PRN (13:30)
[2024-10-14 14:10] VITALS: BP 147/108
== END 2024-10-14 14:55 | disposition home or self-care (01) ==
LOC: ED 10:17
PROVIDERS: Emergency Medicine
DX: N39.0 Urinary tract infection, site not specified (principal); S70.01XA Contusion of right hip, initial encounter; I13.0 Hypertensive heart and chronic kidney disease with heart failure and stage 1 through stage 4 chronic kidney disease, or unspecified chronic kidney disease; I50.9 Heart failure, unspecified; E11.22 Type 2 diabetes mellitus with diabetic chronic kidney disease; N18.9 Chronic kidney disease, unspecified; F03.90 Unspecified dementia, unspecified severity, without behavioral disturbance, psychotic disturbance, mood disturbance, and anxiety; Z88.8 Allergy status to other drugs, medicaments and biological substances; Z79.01 Long term (current) use of anticoagulants; Z79.84 Long term (current) use of oral hypoglycemic drugs; Z79.890 Hormone replacement therapy; Z79.899 Other long term (current) drug therapy; W19.XXXA Unspecified fall, initial encounter
CPT/HCPCS: 36415; 73502; 80053; 81001; 85025; 87077; 87088; 87186; 96365; 99284-25; J0696; J7040

== ENCOUNTER 2024-11-05 05:47 | Emergency (ER) | payer MEDICARE, OTHER ==
[~2024-11-05] VITALS: Ht 149.9 cm; Wt 98.0 kg
[~2024-11-05 05:47] MED LIST changes: +ATORVASTATIN CA20 MG PO; +LAMOTRIGINE25 MG PO; +LEVOTHYROXINE50 MCG PO
[2024-11-05] MEDS ORDERED: ACETAMINOPHEN500 MG PO (06:07)
[2024-11-05] MEDS ORDERED: NYSTATIN15 GM (06:10)
[2024-11-05 06:49] LABS: BLOOD/HGB, URINE TRACE-I (Negative); KETONE, URINE NEGATIVE (Negative); LEUK ESTERASE, URINE MODERATE (negative); NITRITE, URINE POSITIVE (negative)
[2024-11-05 06:54] LABS: EPITHELIAL CELLS, URINE SQUAMOUS 1+ /lpf (0-1+)
[2024-11-05 06:56] LABS: BACTERIA, URINE 3+ /hpf (negative); CASTS, URINE NONE SEEN \\lpf; CRYSTALS, URINE NONE SEEN (0-1+); REFLEX CULTURE, URINE Yes (No)
[2024-11-05] MEDS ORDERED: CEPHALEXIN500 M1 PO (07:08)
[2024-11-05] MEDS ORDERED: CEPHALEXIN MONOHYDRATE 500 MG HOME.PACK PO ONE (07:15)
[2024-11-05 07:18] LABS: BASOPHILS 0.9 % (0.1-1.2); EOSINOPHILS 5.0 % (0.7-5.8); LYMPHOCYTES 26.1 % (19.3-51.7); MCH 28.5 PG (25.6-32.2); MCHC 32.4 g/dL (32.2-35.5); MCV 88.1 fL (79.4-94.8); MONOCYTES 11.6 % (4.7-12.5); NEUTROPHILS 56.2 % (34.0-71.1); RBC 4.03 M/uL (3.93-5.22)
[2024-11-05 07:35] LABS: ALT (SGPT) 10.0 U/L (14-59); AST (SGOT) 17.0 U/L (15-37); GLOMERULAR FILTRATION RATE,EST 44.0 mL/min (>60); PROTEIN, TOTAL 6.6 g/dL (6.4-8.2); UREA NITROGEN 26.0 mg/dL (7-18)
[2024-11-05 07:57] VITALS: BP 172/83
== END 2024-11-05 07:58 | disposition home or self-care (01) ==
LOC: ED 05:47
PROVIDERS: Emergency Medicine
DX: S70.01XA Contusion of right hip, initial encounter (principal); N39.0 Urinary tract infection, site not specified; I11.0 Hypertensive heart disease with heart failure; I50.9 Heart failure, unspecified; E11.9 Type 2 diabetes mellitus without complications; F03.90 Unspecified dementia, unspecified severity, without behavioral disturbance, psychotic disturbance, mood disturbance, and anxiety; W06.XXXA Fall from bed, initial encounter; Z88.8 Allergy status to other drugs, medicaments and biological substances; Z79.01 Long term (current) use of anticoagulants; Z79.84 Long term (current) use of oral hypoglycemic drugs; Z79.890 Hormone replacement therapy
CPT/HCPCS: 36415; 51702; 73502; 80053; 81001; 85025; 87077; 87088; 87186; 99284; A9270

== ENCOUNTER 2024-11-14 16:27 | Emergency (ER) | payer OTHER, MEDICARE ==
[~2024-11-14] VITALS: Ht 149.9 cm; Wt 97.5 kg
--- OUTSIDE RECORDS SUMMARY | ~2024-11-14 | XMS | Continuity of Care Document ---
Demographics + + + | Address | [address] | | | [place] [address] | + + + | Preferred Language | Unknown | + + + | Marital Status | | + + + | Restoration Affiliation | Unknown | + + + | Race | White | + + + | Ethnic Group | Not or | + + + Author + + + | Author | [facility] | + + + | Organization | [facility] | + + + | Address | [address] | | | [place] [address] | + + + | Phone | | + + + Care Team Providers + + + + | Care Mixing Plant Dumper Name | Role | Phone | + [...] (no date) | [facility] | [facility] | | | | [facility] | + + + + Medications + + + + | date | description | facility | + + + + | (no date) | oxy[facility]ide 5 | [facility] | | | MG Oral Tablet | [facility] | + + + + | (no date) | 24 HR mirabegron 25 MG | [facility] | | | Extended Release Oral | [facility] | | | Tablet [Myrbetr | | + + + + | (no date) | diclofenac sodium 75 MG / | [facility] | | | misoprostol 0.2 MG Delayed | [facility] | | | Release | | + + + + | (no date) | apixaban 5 MG Oral Tablet | [facility] | | | [Eliquis] | [facility] | + + + + | (no date) | potassium chloride 8 MEQ | [facility] | | | Extended Release Oral | [facility] | | | Tablet [K-Tab | | + + + + | (no date) | bumetanide 2 MG Oral | [facility] | | | Tablet | [facility] | + + + + | (no ) | doxazosin 2 MG Oral Tablet | [facility] | | | | [facility] | + + + + | (no date) | omeprazole 20 MG Delayed | [facility] | | | Release Oral Capsule | [facility] | + + + + | (no ) | celecoxib 100 MG Oral | [facility] | | | Capsule | [facility] | + + + + | (no ) | magnesium oxide 400 MG | [facility] | | | Oral Tablet [Mag-Ox 400] | [facility] | + + + + | (no ) | lamotrigine 25 MG Oral | [facility] | | | Tablet | [facility] | + + + + | (no ) | cephalexin 500 MG Oral | [facility] - | | | Capsule | [facility] | + + + + | 2024-10-14 00:00 | cephalexin 500 MG Oral | [facility] | | | Capsule | [facility] | + + + + | (no ) | ferrous sulfate 325 MG | [facility] | | | Oral Tablet | [facility] | + + + + | () | furosemide 20 MG Oral | [facility] | | | Tablet | [facility] | + + + + | (no ) | gabapentin 100 MG Oral | [facility] | | | Capsule | [facility] | + + + + | () | levofloxacin 750 MG Oral | [facility] | | | Tablet | [facility] | + + + + | (no ) | lisinopril 5 MG Oral | [facility] | | | Tablet | [facility] | + + + + | (no ) | fluoxetine 40 MG Oral | [facility] | | | C[facility] | [facility] | + + + + | 2024-08-30 00:00 | nitrofurantoin, | [facility] | | | macrocrystals 25 MG / | [facility] | | | nitrofurantoin, monohy | | + + + + | () | duloxetine 60 MG Delayed | [facility] | | | Release Oral Capsule | [facility] | + + + + | () | atorvastatin 20 MG Oral | [facility] | | | Tablet | [facility] | + + + + | (no date) | cholecalciferol 1.25 MG | [facility] | | [facility]aps[facility] | [facility] | + + + + | (no date) | nebivolol 10 MG Oral | [facility] | | | Tablet [Bystolic] | [facility] | + + + + | (no date) | calcium carbonate 1250 MG | [facility] | | | / cholecalciferol 200 UNT | [facility] | | | Oral Tab | | + + + + | (no date) | warfarin sodium 5 MG Oral | [facility] | | | Tablet | [facility] | + + + + | (no date) | acetaminophen 325 MG / | [facility] | | | hydrocodone bitartrate 10 | [facility] | | | MG Oral Tab | | + + + + | (no date) | 24 HR metformin | [facility] | | | hydrochloride 500 MG | [facility] | | | Extended Release Oral T | | + + + + | (no date) | 24 HR metoprolol succinate | [facility] | | | 100 MG Extended Release | [facility] | | | Oral Tabl | | + + + + | (no date) | 24 HR metoprolol succinate | [facility] | | | 25 MG Extended Release | [facility] | | | Oral Table | | + + + + | (no date) | metoprolol tartrate 25 MG | [facility] | | | Oral Tablet | [facility] | + + + + | (no date) | levothyroxine sodium 0.05 | [facility] | | | MG Oral Tablet | [facility] | + + + + | (no date) | levothyroxine sodium 0.05 | [facility] | | | MG Oral Tablet [Synthroid] | [facility] | + + + + | (no date) | 12 HR bupropion | [facility] | | | hydrochloride 200 MG | [facility] | | | Extended Release Oral T [...]
[~2024-11-14 16:27] MED LIST changes: +ACETAMINOPHEN500 MG PO; +NYSTATIN15 GM TOP
[2024-11-14 16:43] LABS: BASOPHILS 1.0 % (0.1-1.2); EOSINOPHILS 4.7 % (0.7-5.8); LYMPHOCYTES 22.2 % (19.3-51.7); MCH 29.1 PG (25.6-32.2); MCHC 31.6 g/dL (32.2-35.5); MCV 91.9 fL (79.4-94.8); MONOCYTES 11.1 % (4.7-12.5); NEUTROPHILS 60.2 % (34.0-71.1); RBC 3.82 M/uL (3.93-5.22)
[2024-11-14 16:59] LABS: ALCOHOL, MEDICAL <3 ng/dL (<3); ALT (SGPT) 10 U/L (14-59); AST (SGOT) 15 U/L (15-37); GLOMERULAR FILTRATION RATE,EST 41 mL/min (>60); PROTEIN, TOTAL 6.6 g/dL (6.4-8.2); UREA NITROGEN 26 mg/dL (7-18)
[2024-11-14] MEDS ORDERED: SODIUM CHLORIDE 0.9% 50 ML IV PRN (18:15)
[2024-11-14] MEDS ORDERED: HUMAN PROTHROMBIN COMPLX(PCC) 500 UNIT/20 ML VIAL IV ONE (18:15)
[2024-11-14 18:56] LABS: INR 1.31 (0.80-1.30); PROTIME 15.4 Sec (11.2-14.2)
[2024-11-14 19:01] LABS: AMPHETAMINES, URINE NEGATIVE (NEGATIVE); BARBITURATES, URINE NEGATIVE (NEGATIVE); BENZODIAZEPINE, URINE NEGATIVE (NEGATIVE); CANNABINOID, URINE NEGATIVE (NEGATIVE); COCAINE, URINE NEGATIVE (NEGATIVE); ECSTASY, URINE NEGATIVE (NEGATIVE); FENTANYL, URINE NEGATIVE (NEGATIVE); METHADONE, URINE NEGATIVE (NEGATIVE); OPIATES, URINE NEGATIVE (NEGATIVE); OXYCODONE, URINE NEGATIVE (NEGATIVE); PHENCYCLIDINE, URINE NEGATIVE (NEGATIVE)
[2024-11-14] MEDS ORDERED: FAMOTIDINE 20 MG/ 2 ML VIAL IV ONE (19:15)
[2024-11-14] MEDS ORDERED: OLANZapine 10 MG TABDIS PO ONE (19:15)
[2024-11-14 19:24] VITALS: BP 171/83
== END 2024-11-14 19:44 | disposition short-term general hospital (02) ==
LOC: ED 16:27
PROVIDERS: Emergency Medicine
DX: S06.6XAA Traumatic subarachnoid hemorrhage with loss of consciousness status unknown, initial encounter (principal); D64.9 Anemia, unspecified; E11.65 Type 2 diabetes mellitus with hyperglycemia; I11.0 Hypertensive heart disease with heart failure; I50.9 Heart failure, unspecified; Z88.8 Allergy status to other drugs, medicaments and biological substances; Z79.01 Long term (current) use of anticoagulants; Z79.84 Long term (current) use of oral hypoglycemic drugs; Z79.890 Hormone replacement therapy; Z79.899 Other long term (current) drug therapy; Z91.81 History of falling; W18.30XA Fall on same level, unspecified, initial encounter
CPT/HCPCS: 36415; 70450; 72125; 73502; 73560; 80053; 80307; 85025; 85610; 85730; 96374; 99284-25; G0480; J7168

== ENCOUNTER 2024-11-17 21:33 | Inpatient (IN) | payer MEDICARE, OTHER ==
[~2024-11-17] VITALS: Ht 149.9 cm; Wt 88.9 kg
--- OUTSIDE RECORDS SUMMARY | ~2024-11-17 | XMS | Continuity of Care Document ---
Demographics + + + | Address | [address] | | | [place] [address] | + + + | Preferred Language | Unknown | + + + | Marital Status | | + + + | Roman Catholic Affiliation | Unknown | + + + | Race | White | + + + | Ethnic Group | Not or | + + + Author + + + | Author | [facility] | + + + | Organization | [facility] | + + + | Address | [address] | | | [place] [address] | + + + | Phone | | + + + Care Team Providers + + + + | Care Hay Buckler Name | Role | Phone | + + + + Unavailable | Unavailable | + + + + Unavailable | Unavailable | + + + + Allergies and Intolerances + + + + + + | date | description | facility | reaction | severity | + + + + + + | 2024-08-30 | pregabalin | [facility] - | (no reaction) | (no severity) | | 00:00 | | [facility] | | | + + + + + + Encounters No information. Functional Status No information. Immunizations + + + + | date | description | facility | + + + + | (no date) | No vaccine administered | [facility] | | | | [facility] | + + + + Medications + + + + | date | description | facility | + + + + | (no date) | oxycodone hydrochloride 5 | [facility] | | | MG Oral Tablet | [facility] | + + + + | (no date) | 24 HR mirabegron 25 MG | [facility] | | | Extended Release Oral | [facility] | | | Tablet [Myrbetr | | + + + + | (no date) | diclofenac sodium 75 MG / | [facility] | | | misoprostol 0.2 MG Delayed | [facility] | | | Release | | + + + + | (no date) | apixaban 5 MG Oral Tablet | [facility] | | | [Eliquis] | [facility] | + + + + | (no date) | potassium chloride 8 MEQ | [facility] | | | Extended Release Oral | [facility] | | | Tablet [K-Tab | | + + + + | (no date) | bumetanide 2 MG Oral | [facility] | | | Tablet | [facility] | + + + + | (no ) | doxazosin 2 MG Oral Tablet | [facility] | | | | [facility] | + + + + | (no date) | omeprazole 20 MG Delayed | [facility] | | | Release Oral Capsule | [facility] | + + + + | (no ) | celecoxib 100 MG Oral | [facility] | | | Capsule | [facility] | + + + + | (no ) | magnesium oxide 400 MG | [facility] - | | | Oral Tablet [Mag-Ox 400] | [facility] | + + + + | (no ) | lamotrigine 25 MG Oral | [facility] - | | | Tablet | [facility] | + + + + | (no ) | cephalexin 500 MG Oral | [facility] - | | | Capsule | [facility] | + + + + | 2024-10-14 00:00 | cephalexin 500 MG Oral | [facility] | | | Capsule | [facility] | + + + + | (no ) | ferrous sulfate 325 MG | [facility] | | | Oral Tablet | [facility] | + + + + | () | furosemide 20 MG Oral | [facility] | | | Tablet | [facility] | + + + + | (no ) | gabapentin 100 MG Oral | [facility] | | | Capsule | [facility] | + + + + | () | levofloxacin 750 MG Oral | [facility] | | | Tablet | [facility] | + + + + | (no ) | lisinopril 5 MG Oral | [facility] | | | Tablet | [facility] | + + + + | (no ) | fluoxetine 40 MG Oral | [facility] | | | Capsule | [facility] | + + + + | 2024-08-30 00:00 | nitrofurantoin, | [facility] | | | macrocrystals 25 MG / | [facility] | | | nitrofurantoin, monohy | | + + + + | () | duloxetine 60 MG Delayed | [facility] | | | Release Oral Capsule | [facility] | + + + + | () | atorvastatin 20 MG Oral | [facility] | | | Tablet | [facility] | + + + + | (no date) | cholecalciferol 1.25 MG | [facility] | | Oral Capsule | [facility] | + + + + | (no date) | nebivolol 10 MG Oral | [facility] | | | Tablet [Bystolic] | [facility] | + + + + | (no date) | calcium carbonate 1250 MG | [facility] | | | / cholecalciferol 200 UNT | [facility] | | | Oral Tab | | + + + + | (no date) | warfarin sodium 5 MG Oral | [facility] | | | Tablet | [facility] | + + + + | (no date) | acetaminophen 325 MG / | [facility] | | | hydrocodone bitartrate 10 | [facility] | | | MG Oral Tab | | + + + + | (no date) | 24 HR metformin | [facility] | | | hydrochloride 500 MG | [facility] | | | Extended Release Oral T | | + + + + | (no date) | 24 HR metoprolol succinate | [facility] | | | 100 MG Extended Release | [facility] | | | Oral Tabl | | + + + + | (no date) | 24 HR metoprolol succinate | [facility] | | | 25 MG Extended Release | [facility] | | | Oral Table | | + + + + | (no date) | metoprolol tartrate 25 MG | [facility] | | | Oral Tablet | [facility] | + + + + | (no date) | levothyroxine sodium 0.05 | [facility] | | | MG Oral Tablet | [facility] | + + + + | (no date) | levothyroxine sodium 0.05 | [facility] | | | MG Oral Tablet [Synthroid] | [facility] | + + + + | (no date) | 12 HR bupropion | [facility] | | | hydrochloride 200 MG | [facility] | | | Extended Release Oral T | | + + + + Problems No information. Procedures No information. Results/Labs +--------+--------+ +---------+--------+---------+ | test | date | facility | value | unit | notes | +--------+--------+ +---------+--------+---------+ + + | Result panel 1 | + + + + + +--------+ + + | Serum or | 2024-08-30 | | 0.68 | (missing) | (missing) | | plasma | 16:28 | [facility] | | | | | albumin/glob | [facility] | ulin mass | | [facility] | | | | [facility] | | [facility] | | | | + + + +--------+ + + + + | Result panel 2 | + + + + + +-------+ + + | Serum or | 2024-08-30 | | 0.8 | (missing) | (missing) | | plasma total | 16:28 | [facility] | | | | | bilirubin | [facility] | measurement | | [facility] | | | | (mass/volume | | [facility] | | | | | ) | | | | | | + + + +-------+ + + + + | Result panel 3 | + + + + + +------+ + + | Serum or | 2024-08-30 | | 25 | (missing) | (missing) | | plasma | 16:28 | [facility] | | | | | aspartate | | - [facility] | | | | | aminotransfe | | [facility] | | | | | rase | | Hospital | | | | | measurement | | | | | | | (enzymatic | | | | | | | activity/vol | | | | | | | ume) | | | | | | + + + +------+ + + + + | Result panel 4 | + + + + + +------+ + + | Serum or | 2024-08-30 | | 17 | (missing) | (missing) | | plasma | 16:28 | [facility] | | | | | alanine | | - [facility] | | | | | aminotransfe | | [facility] | | | | | rase | | Hospital | | | | | measurement | | | | | | | (enzymatic | | | | | | | activity/vol | | | | | | | ume) | | | | | | + + + +------+ + + + + | Result panel 5 | + + + + + +-------+ + + | Serum or | 2024-08-30 | | 161 | (missing) | (missing) | | plasma | 16:28 | [facility] | | | | | alkaline | [facility] | | | | | phosphatase | | [facility] | | | | | measurement | | Hospital | | | | | (enzymatic | | | | | | | activity/vol | | | | | | | ume) | | | | | | + + + +-------+ + + + + | Result panel 6 | + + + + + +---------+ + + | Blood | 2024-08-30 | | 11.78 | (missing) | (missing) | | leukocytes | 16:28 | [facility] | | | | | automated | | - [facility] | | [facility] | count | | [facility] | | | | | (number/volu | | Hospital | | | | | me) | | | | | | + + + +---------+ + + + + | Result panel 7 | + + + + + +--------+ + + | Blood | 2024-08-30 | | 4.34 | (missing) | (missing) | | erythrocytes | 16:28 | [facility] | | | | | automated | [facility] - [facility] | count | | [facility] | | | | | (number/volu | | Hospital | | | | | me) | | | | | | + + + +--------+ + + + + | Result panel 8 | + + + + + +--------+ + + | Blood | 2024-08-30 | | 12.3 | (missing) | (missing) | | hemoglobin | 16:28 | [facility] | | | | | measurement | | [facility] | [facility] | (mass/volume | | [facility] | | | | ) | | [facility] | | | | + + + +--------+ + + + + | Result panel 9 | + + + + + +--------+ + + | Automated | 2024-08-30 | | 38.0 | (missing) | (missing) | | blood | 16:28 | [facility] | | | | | hematocrit | [facility] - [facility] | | [facility] | | | | + + + +--------+ + + + + | Result panel 10 | + + + + + +--------+ + + | Automated | 2024-08-30 | | 87.6 | (missing) | (missing) | | erythrocyte | 16:28 | [facility] | | | | | mean | | - [facility] | | | | | corpuscular | | [facility] | | | | | volume | | [facility] | | | | + + + +--------+ + + + + | Result panel 11 | + + + + + +--------+ + + | Automated | 2024-08-30 | | 28.3 | (missing) | (missing) | | erythrocyte | 16:28 | [facility] | | | | | mean | | - [facility] | | | | | corpuscular | | [facility] | | | | | hemoglobin | | Hospital | | | | | (mass per | | | | | | | erythrocyte) | | | | | | | | | | | | | + + + +--------+ + + + + | Result panel 12 | + + + + + +--------+ + + | Automated | 2024-08-30 | | 32.4 | (missing) | (missing) | | erythrocyte | 16:28 | [facility] | | | | | mean | | - [facility] | | | | | corpuscular | | [facility] | | | | | hemoglobin | | Hospital | | | | | concentratio | | | | | | | n | | | | | | | measurement | | | | | | | (mass/volume | | | | | | | ) | | | | | | + + + +--------+ + + + + | Result panel 13 | + + + + + +-------+ + + | Automated | 2024-08-30 | | 219 | (missing) | (missing) | | blood | 16:28 | [facility] | | | | | platelet | | - [facility] | | [facility] | count | | [facility] | | | | | (count/volum | | Hospital | | | | | e) | | | | | | + + + +-------+ + + + + | Result panel 14 | + + + + + +--------+ + + | Automated | 2024-08-30 | | 76.6 | (missing) | (missing) | | blood | 16:28 | [facility] | | | | | neutrophil | | - [facility] | | | | | count as | | [facility] | | | | | percentage | | Hospital | | | | | of total | | | | | | | leukocytes | | | | | | + + + +--------+ + + + + | Result panel 15 | + + + + + +--------+ + + | Automated | 2024-08-30 | | 10.1 | (missing) | (missing) | | blood | 16:28 | [facility] | | | | | lymphocyte | | - [facility] | | | | | count as | | [facility] | | | | | percentage | | Hospital | | | | | ot total | | | | | | | leukocytes | | | | | | + + + +--------+ + + + + | Result panel 16 | + + + + + +--------+ + + | Automated | 2024-08-30 | | 12.0 | (missing) | (missing) | | blood | 16:28 | [facility] | | | | | monocyte | | - [facility] | | | | | count as | | [facility] | | | | | percentage | | Hospital | | | | | of total | | | | | | | leukocytes | | | | | | + + + +--------+ + + + + | Result panel 17 | + + + + + +-------+ + + | Automated | 2024-08-30 | | 0.4 | (missing) | (missing) | | blood | 16:28 | [facility] | | | | | eosinophil | | - [facility] | | | | | count as | | [facility] | | | | | percentage | | Hospital | | | | | of total | | | | | | | leukocytes | | | | | | + + + +-------+ + + + + | Result panel 18 | + + + + + +-------+ + + | Automated | 2024-08-30 | | 0.4 | (missing) | (missing) | | blood | 16:28 | [facility] | | | | | basophil | | - [facility] | | | | | count as | | [facility] | | | | | percentage | | Hospital | | | | | of total | | | | | | | leukocytes | | | | | | + + + +-------+ + + + + | Result panel 19 | + + + + + +-------+ + + | Serum or | 2024-08-30 | | 171 | (missing) | (missing) | | plasma | 16:28 | [facility] | | | | | glucose | | - [facility] | | | | | measurement | | [facility] | | | | | (mass/volume | | Hospital | | | | | ) | | | | | | + + + +-------+ + + + + | Result panel 20 | + + + + + +------+ + + | Serum or | 2024-08-30 | | 22 | (missing) | (missing) | | plasma urea | 16:28 | [facility] | | | | | nitrogen | | - [facility] | | | | | measurement | | [facility] | | | | | (mass/volume | | Hospital | | | | | ) | | | | | | + + + +------+ + + + + | Result panel 21 | + + + + + +--------+ + + | Serum or | 2024-08-30 | | 1.12 | (missing) | (missing) | | plasma | 16:28 | [facility] | | | | | creatinine | | - [facility] | | | | | measurement | | [facility] | | | | | (mass/volume | | Hospital | | | | | ) | | | | | | + + + +--------+ + + + + | Result panel 22 | + + + + + +------+ + + | Glomerular | 2024-08-30 | | 49 | (missing) | (missing) | | filtration | 16:28 | [facility] | | | | | rate/1.73 sq | | - [facility] | | | | | M.predicted | | [facility] | | | | | [Volume | | Hospital | | | | | Rate/Area] | | | | | | | inSerum, | | | | | | | Plasma or | | | | | | | Blood by | | | | | | | Creatinine-b | | | | | | | ased formula | | | | | | | (CKD-EPI | | | | | | | 2020) | | | | | | + + + +------+ + + + + | Result panel 23 | + + + + + +---------+ + + | Serum or | 2024-08-30 | | 19.64 | (missing) | (missing) | | plasma urea | 16:28 | [facility] | | | | | nitrogen/cre | | - [facility] | | | | | atinine mass | | [facility] | | | | | ratio | | [facility] | | | | + + + +---------+ + + + + | Result panel 24 | + + + + + +-------+ + + | Serum or | 2024-08-30 | | 136 | (missing) | (missing) | | plasma | 16:28 | [facility] | | | | | sodium | | - [facility] | | | | | measurement | | [facility] | | | | | (moles/volum | | Hospital | | | | | e) | | | | | | + + + +-------+ + + + + | Result panel 25 | + + + + + +-------+ + + | Serum or | 2024-08-30 | | 3.9 | (missing) | (missing) | | plasma | 16:28 | [facility] | | | | | potassium | | - [facility] | | | | | measurement | | [facility] | | | | | (moles/volum | | Hospital | | | | | e) | | | | | | + + + +-------+ + + + + | Result panel 26 | + + + + + +-------+ + + | Serum or | 2024-08-30 | | 102 | (missing) | (missing) | | plasma | 16:28 | [facility] | | | | | chloride | | - [facility] | | | | | measurement | | [facility] | | | | | (moles/volum | | Hospital | | | | | e) | | | | | | + + + +-------+ + + + + | Result panel 27 | + + + + + +------+ + + | Serum or | 2024-08-30 | | 25 | (missing) | (missing) | | plasma | 16:28 | [facility] | | | | | carbon | | - [facility] | | | | | dioxide, | | [facility] | | | | | total | | Hospital | | | | | measurement | | | | | | | (moles/volum | | | | | | | e) | | | | | | + + + +------+ + + + + | Result panel 28 | + + + + + +--------+ + + | Serum or | 2024-08-30 | | 12.9 | (missing) | (missing) | | plasma anion | 16:28 | [facility] | | | | | gap 4 | [facility] | | [facility] | | | | + + + +--------+ + + + + | Result panel 29 | + + + + + +-------+ + + | Serum or | 2024-08-30 | | 8.4 | (missing) | (missing) | | plasma | 16:28 | [facility] | | | | | calcium | | - [facility] | | | | | measurement | | [facility] | | | | | (mass/volume | | Hospital | | | | | ) | | | | | | + + + +-------+ + + + + | Result panel 30 | + + + + + +-------+ + + | Serum or | 2024-08-30 | | 6.4 | (missing) | (missing) | | plasma | 16:28 | [facility] | | | | | protein | | - [facility] | | | | | measurement | | [facility] | | | | | (mass/volume | | Hospital | | | | | ) | | | | | | + + + +-------+ + + + + | Result panel 31 | + + + + + +-------+ + + | Serum or | 2024-08-30 | | 2.6 | (missing) | (missing) | | plasma | 16:28 | [facility] | | | | | albumin | | - [facility] | | | | | measurement | | [facility] | | | | | (mass/volume | | Hospital | | | | | ) | | | | | | + + + +-------+ + + + + | Result panel 32 | + + + + + +-------+ + + | Serum | 2024-08-30 | | 3.8 | (missing) | (missing) | | globulin | 16:28 | [facility] | | | | | measurement | | - [facility] | | | | | (mass/volume | | [facility] | | | | ) | | [facility] | | | | + + + +-------+ + + + + | Result panel 33 | + + + + + + + + + | Color of | 2024-08-30 | | YELLOW | (missing) | (missing) | | Urine by | 17:07 | [facility] | | | | | Auto | | - [facility] | | | | | | | [facility] | | | | + + + + + + + + + | Result panel 34 | + + + + + +---------+ + + | Character | 2024-08-30 | | CLEAR | (missing) | (missing) | | of Urine | 17:07 | [facility] | | | | | | | - [facility] | | | | | | | [facility] | | | | + + + +---------+ + + + + | Result panel 35 | + + + + + + + + + | Glucose | 2024-08-30 | | NEGATIVE | (missing) | (missing) | | [Presence] | 17:07 | [facility] | | | | | in Urine by | | - [facility] | | | | | Test strip | | [facility] | | | | + + + + + + + + + | Result panel 36 | + + + + + + + + + | Urine total | 2024-08-30 | | NEGATIVE | (missing) | (missing) | | bilirubin | 17:07 | [facility] | | | | | detection by | | - [facility] | | | | | test strip | | [facility] | | | | + + + + + + + + + | Result panel 37 | + + + + + + + + + | Urine | 2024-08-30 | | NEGATIVE | (missing) | (missing) | | ketones | 17:07 | [facility] | | | | | detection by | | - [facility] | | | | | test strip | | [facility] | [facility] | | | | + + + + + + + + + | Result panel 38 | + + + + + +---------+ + + | Specific | 2024-08-30 | | 1.015 | (missing) | (missing) | | gravity ur | 17:07 | [facility] | | | | | dipstick | [facility] - [facility] | | | | | | [facility] | | | | + + + +---------+ + + + + | Result panel 39 | + + + + + + + + + | Urine | 2024-08-30 | | MODERATE | (missing) | (missing) | | hemoglobin | 17:07 | [facility] | | | | | detection by | | - [facility] | | | | | test strip | | [facility] | | | | + + + + + + + + + | Result panel 40 | + + + + + +-------+ + + | Urine pH | 2024-08-30 | | 6.0 | (missing) | (missing) | | measurement | 17:07 | [facility] | | | | | by test | | - [facility] | | | | | strip | | [facility] | | | | + + + +-------+ + + + + | Result panel 41 | + + + + + +------+ + + | Protein | 2024-08-30 | | 30 | (missing) | (missing) | | urine test | 17:07 | [facility] | | | | | strip | | - [facility] | | | | | | | [facility] | | [facility] | | | | + + + +------+ + + + + | Result panel 42 | + + + + + +-------+ + + | | 2024-08-30 | | 1.0 | (missing) | (missing) | | Urobilinogen | 17:07 | [facility] | | | | | | | - [facility] | | | | | [Mass/volume | | [facility] | | | | | ] in Urine | | Hospital | | | | | by Test | | | | | | | strip | | | | | | + + + +-------+ + + + + | Result panel 43 | + + + + + + + + + | Urine | 2024-08-30 | | POSITIVE | (missing) | (missing) | | nitrite | 17:07 | [facility] | | | | | detection by | | - [facility] | | | | | test strip | | [facility] | [facility] | [facility] | | | | + + + + + + + + + | Result panel 44 | + + + + + + + + + | Urine | 2024-08-30 | | MODERATE | (missing) | (missing) | | leukocyte | 17:07 | [facility] | | | | | esterase | | - [facility] | | | | | detection by | | [facility] | | | | | dipstick | | Hospital | | | | + + + + + + + + + | Result panel 45 | + + + + + +---------+ + + | Automated | 2024-08-30 | | 12-20 | (missing) | (missing) | | urine | 17:07 | [facility] | | | | | sediment | | - [facility] | | | | | erythrocyte | | [facility] | | | | | count by | | Hospital | | | | | microscopy | | | | | | | (number/high | | | | | | | power | | | | | | | field) | | | | | | + + + +---------+ + + + + | Result panel 46 | + + + + + +-------+ + + | Automated | 2024-08-30 | | >50 | (missing) | (missing) | | urine | 17:07 | [facility] | | | | | sediment | | - [facility] | | | | | leukocyte | | [facility] | | | | | count by | | Hospital | | | | | microscopy | | | | | | | (number/high | | | | | | | power | | | | | | | field) | | | | | | + + + +-------+ + + + + | Result panel 47 | + + + + + + + + + | Automated | 2024-08-30 | | SQUAMOUS 1+ | (missing) | (missing) | | urine | 17:07 | [facility] | | | | | sediment | | - [facility] | | | | | epithelial | | [facility] | | | | | cell count | | Hospital | | | | | by | | | | | | | microscopy | | | | | | | (number/high | | | | | | | power | | | | | | | field) | | | | | | + + + + + + + + + | Result panel 48 | + + + + + + + + + | Crystal | 2024-08-30 | | NONE SEEN | (missing) | (missing) | | typing in | 17:07 | [facility] | | | | | urine | | - [facility] | | | | | sediment by | | [facility] | | | | | light | | Hospital | | | | | microscopy | | | | | | + + + + + + + + + | Result panel 49 | + + + + + +------+ + + | Automated | 2024-08-30 | | 1+ | (missing) | (missing) | | urine | 17:07 | [facility] | | | | | sediment | | - [facility] | | | | | bacteria | | [facility] | | | | | count by | | Hospital | | | | | microscopy | | | | | | | (number/high | | | | | | | power | | | | | | | field) | | | | | | + + + +------+ + + + + | Result panel 50 | + + + + + + + + + | Automated | 2024-08-30 | | NONE SEEN | (missing) | (missing) | | casts count | 17:07 | [facility] | | | | | in urine | | - [facility] | | | | | sediment by | | [facility] | | | | | microscopy | | Hospital | | | | | low power | | | | | | | field | | | | | | | (number/area | | | | | | | ) | | | | | | + + + + + + + + + | Result panel 51 | + + + + + +-------+ + + | Reflexive | 2024-08-30 | | Yes | (missing) | (missing) | | urine | 17:07 | [facility] | | | | | bacterial | | - [facility] | | | | | culture | | [facility] | | | | | | [facility] | | | | + + + +-------+ + + + + | Result panel 52 | + + + + + + + + + | Urinalysis | 2024-08-30 | | CLEAN CATCH | (missing) | (missing) | | specimen | 17:07 | [facility] | | | | | collection | | [facility] | | | | | method | | [facility] | | [facility] | | [facility] | | | | + + + + + + + + + | Result panel 53 | + + + + + +---------+ + + | Blood | 2024-10-14 | | 11.07 | (missing) | (missing) | | leukocytes | 10:40 | [facility] | | | | | automated | | - [facility] | | | | | count | | [facility] | | | | | (number/volu | | Hospital | | | | | me) | | | | | | + + + +---------+ + + + + | Result panel 54 | + + + + + +--------+ + + | Blood | 2024-10-14 | | 4.10 | (missing) | (missing) | | erythrocytes | 10:40 | [facility] | | | | | automated | | - [facility] | | | | | count | | [facility] | | | | | (number/volu | | Hospital | | | | | me) | | | | | | + + + +--------+ + + + + | Result panel 55 | + + + + + +--------+ + + | Blood | 2024-10-14 | | 11.5 | (missing) | (missing) | | hemoglobin | 10:40 | [facility] | | | | | measurement | | - [facility] | | | | | (mass/volume | | [facility] | | | | ) | | [facility] | | | | + + + +--------+ + + + + | Result panel 56 | + + + + + +--------+ + + | Automated | 2024-10-14 | | 35.9 | (missing) | (missing) | | blood | 10:40 | [facility] | | | | | hematocrit | | - [facility] | | | | | | | [facility] | | | | | [facility] | | | | + + + +--------+ + + + + | Result panel 57 | + + + + + +--------+ + + | Automated | 2024-10-14 | | 87.6 | (missing) | (missing) | | erythrocyte | 10:40 | [facility] | | | | | mean | | - [facility] | | | | | corpuscular | | [facility] | | | | | volume | | Hospital | | | | + + + +--------+ + + + + | Result panel 58 | + + + + + +--------+ + + | Automated | 2024-10-14 | | 28.0 | (missing) | (missing) | | erythrocyte | 10:40 | [facility] | | | | | mean | | - [facility] | | | | | corpuscular | | [facility] | | | | | hemoglobin | | Hospital | | | | | (mass per | | | | | | | erythrocyte) | | | | | | | | | | | | | + + + +--------+ + + + + | Result panel 59 | + + + + + +--------+ + + | Automated | 2024-10-14 | | 32.0 | (missing) | (missing) | | erythrocyte | 10:40 | [facility] | | | | | mean | | - [facility] | | | | | corpuscular | | [facility] | | | | | hemoglobin | | Hospital | | | | | concentratio | | | | | | | n | | | | | | | measurement | | | | | | | (mass/volume | | | | | | | ) | | | | | | + + + +--------+ + + + + | Result panel 60 | + + + + + +-------+ + + | Automated | 2024-10-14 | | 291 | (missing) | (missing) | | blood | 10:40 | [facility] | | | | | platelet | [facility] count | | [facility] | | | | | (count/volum | | [facility] | | | | | e) | | | | | | + + + +-------+ + + + + | Result panel 61 | + + + + + +--------+ + + | Automated | 2024-10-14 | | 71.1 | (missing) | (missing) | | blood | 10:40 | [facility] | | | | | neutrophil [facility] count as | | [facility] | | | | | percentage | | [facility] | | | | | of total | | | | | | | leukocytes | | | | | | + + + +--------+ + + + + | Result panel 62 | + + + + + +--------+ + + | Automated | 2024-10-14 | | 15.1 | (missing) | (missing) | | blood | 10:40 | [facility] | | | | | lymphocyte | [facility] | count as | | [facility] | | | | | percentage | | [facility] | | | | | ot total | | | | | | | leukocytes | | | | | | + + + +--------+ + + + + | Result panel 63 | + + + + + +--------+ + + | Automated | 2024-10-14 | | 12.0 | (missing) | (missing) | | blood | 10:40 | [facility] | | | | | monocyte | [facility] count as | | [facility] | | | | percentage | | [facility] | | | | | of total | | | | | | | leukocytes | | | | | | + + + +--------+ + + + + | Result panel 64 | + + + + + +-------+ + + | Automated | 2024-10-14 | | 0.8 | (missing) | (missing) | | blood | 10:40 | [facility] | | | | | eosinophil | [facility] count as | [facility] | | | | percentage | | [facility] | | | | | of total | | | | | | | leukocytes | | | | | | + + + +-------+ + + + + | Result panel 65 | + + + + + +-------+ + + | Automated | 2024-10-14 | | 0.7 | (missing) | (missing) | | blood | 10:40 | [facility] | | | | | basophil | [facility] count as | [facility] | | | | percentage | | [facility] | | | | | of total | | | | | | | leukocytes | | | | | | + + + +-------+ + + + + | Result panel 66 | + + + + + +-------+ + + | Serum or | 2024-10-14 | | 224 | (missing) | (missing) | | plasma | 10:40 | [facility] | | | | | glucose | [facility] | measurement | | [facility] | | | | | (mass/volume | | Hospital | | | | | ) | | | | | | + + + +-------+ + + + + | Result panel 67 | + + + + + +------+ + + | Serum or | 2024-10-14 | | 17 | (missing) | (missing) | | plasma urea | 10:40 | [facility] | | | | | nitrogen | [facility] | measurement | | [facility] | | | | | (mass/volume | | Hospital | | | | | ) | | | | | | + + + +------+ + + + + | Result panel 68 | + + + + + +--------+ + + | Serum or | 2024-10-14 | | 1.23 | (missing) | (missing) | | plasma | 10:40 | [facility] | | | | | creatinine | [facility] | measurement | | [facility] | | | | (mass/volume | | [facility] | | | | | ) | | | | | | + + + +--------+ + + + + | Result panel 69 | + + + + + +------+ + + | Glomerular | 2024-10-14 | | 44 | (missing) | (missing) | | filtration | 10:40 | [facility] | | | | | rate/1.73 sq | | - [facility] | | | | | M.predicted | | [facility] | | | | | [Volume | | Hospital | | | | | Rate/Area] | | | | | | | inSerum, | | | | | | | Plasma or | | | | | | | Blood by | | | | | | | Creatinine-b | | | | | | | ased formula | | | | | | | (CKD-EPI | | | | | | | 2020) | | | | | | + + + +------+ + + + + | Result panel 70 | + + + + + +---------+ + + | Serum or | 2024-10-14 | | 13.82 | (missing) | (missing) | | plasma urea | 10:40 | [facility] | | | | | nitrogen/cre | | - [facility] | | [facility] | | atinine mass | | [facility] | | | | | ratio | | Hospital | | | | + + + +---------+ + + + + | Result panel 71 | + + + + + +-------+ + + | Serum or | 2024-10-14 | | 135 | (missing) | (missing) | | plasma | 10:40 | [facility] | | | | | sodium | [facility] | [facility] | measurement | | [facility] | | | | | (moles/volum | | Hospital | | | | | e) | | | | | | + + + +-------+ + + + + | Result panel 72 | + + + + + +-------+ + + | Serum or | 2024-10-14 | | 3.7 | (missing) | (missing) | | plasma | 10:40 | [facility] | | | | | potassium | [facility] | measurement | | [facility] | | | | | (moles/volum | | Hospital | | | | | e) | | | | | | + + + +-------+ + + + + | Result panel 73 | + + + + + +-------+ + + | Serum or | 2024-10-14 | | 100 | (missing) | (missing) | | plasma | 10:40 | [facility] | | | | | chloride | [facility] | measurement | | [facility] | | | | | (moles/volum | | Hospital | | | | | e) | | | | | | + + + +-------+ + + + + | Result panel 74 | + + + + + +------+ + + | Serum or | 2024-10-14 | | 26 | (missing) | (missing) | | plasma | 10:40 | [facility] | | | | | carbon | [facility] | dioxide, | | [facility] | | | | | total | | Hospital | | | | | measurement | | | | | | | (moles/volum | | | | | | | e) | | | | | | + + + +------+ + + + + | Result panel 75 | + + + + + +--------+ + + | Serum or | 2024-10-14 | | 12.7 | (missing) | (missing) | | plasma anion | 10:40 | [facility] | | | | | gap 4 | [facility] | | | | + + + +--------+ + + + + | Result panel 76 | + + + + + +-------+ + + | Serum or | 2024-10-14 | | 8.9 | (missing) | (missing) | | plasma | 10:40 | [facility] | | | | | calcium | [facility] - [facility] | measurement | | [facility] | | | | | (mass/volume | | Hospital | | | | | ) | | | | | | + + + +-------+ + + + + | Result panel 77 | + + + + + +-------+ + + | Serum or | 2024-10-14 | | 6.5 | (missing) | (missing) | | plasma | 10:40 | [facility] | | | | | protein | [facility] - [facility] | measurement | | [facility] | | | | | (mass/volume | | Hospital | | | | | ) | | | | | | + + + +-------+ + + + + | Result panel 78 | + + + + + +-------+ + + | Serum or | 2024-10-14 | | 2.7 | (missing) | (missing) | | plasma | 10:40 | [facility] | | | | | albumin | [facility] | measurement | | [facility] | | | | | (mass/volume | | Hospital | | | | | ) | | | | | | + + + +-------+ + + + + | Result panel 79 | + + + + + +-------+ + + | Serum | 2024-10-14 | | 3.8 | (missing) | (missing) | | globulin | 10:40 | [facility] | | | | | measurement | [facility] | [facility] | (mass/volume | | [facility] | | | | ) | | [facility] | | | | + + + +-------+ + + + + | Result panel 80 | + + + + + +--------+ + + | Serum or | 2024-10-14 | | 0.71 | (missing) | (missing) | | plasma | 10:40 | [facility] | | | | | albumin/glob | [facility] | [facility] | ulin mass | | [facility] | | | | | ratio | | [facility] | | | | + + + +--------+ + + + + | Result panel 81 | + + + + + +-------+ + + | Serum or | 2024-10-14 | | 0.8 | (missing) | (missing) | | plasma total | 10:40 | [facility] | | | | | bilirubin | [facility] - [facility] | measurement | | [facility] | | | | | (mass/volume | | Hospital | | | | | ) | | | | | | + + + +-------+ + + + + | Result panel 82 | + + + + + +------+ + + | Serum or | 2024-10-14 | | 16 | (missing) | (missing) | | plasma | 10:40 | [facility] | | | | | aspartate | | - [facility] | | | | | aminotransfe | | [facility] | | | | | rase | | Hospital | | | | | measurement | | | | | | | (enzymatic | | | | | | | activity/vol | | | | | | | ume) | | | | | | + + + +------+ + + + + | Result panel 83 | + + + + + +-----+ + + | Serum or | 2024-10-14 | | 8 | (missing) | (missing) | | plasma | 10:40 | [facility] | | | | | alanine | | - [facility] | | | | | aminotransfe | | [facility] | | | | | rase | | Hospital | | | | | measurement | | | | | | | (enzymatic | | | | | | | activity/vol | | | | | | | ume) | | | | | | + + + +-----+ + + + + | Result panel 84 | + + + + + +-------+ + + | Serum or | 2024-10-14 | | 135 | (missing) | (missing) | | plasma | 10:40 | [facility] | | | | | alkaline | [facility] | | [facility] | phosphatase | | [facility] | | | | | measurement | | Hospital | | | | | (enzymatic | | | | | | | activity/vol | | | | | | | ume) | | | | | | + + + +-------+ + + + + | Result panel 85 | + + + + + + + + + | Color of | 2024-10-14 | | YELLOW | (missing) | (missing) | | Urine by | 12:55 | [facility] | | | | | Auto | [facility] | [facility] | | | | [facility] | | [facility] | | [facility] | | | | + + + + + + + + + | Result panel 86 | + + + + + + + + + | | 2024-10-14 | | NORMAL | (missing) | (missing) | | Urobilinogen | 12:55 | [facility] | | | | | | | [facility] | | | | | [Mass/volume | | [facility] | | | | | ] in Urine | | Hospital | | | | | by Test | | | | | | | strip | | | | | | + + + + + + + + + | Result panel 87 | + + + + + + + + + | Urine | 2024-10-14 | | POSITIVE | (missing) | (missing) | | nitrite | 12:55 | [facility] | | | | | detection by | | - [facility] | | | [facility] | test strip | | [facility] | | | [facility] | | | | + + + + + + + + + | Result panel 88 | + + + + + +---------+ + + | Urine | 2024-10-14 | | LARGE | (missing) | (missing) | | leukocyte | 12:55 | [facility] | | | | | esterase | [facility] | | [facility] | | detection by | | [facility] | | | | | dipstick | | Hospital | | | | + + + +---------+ + + + + | Result panel 89 | + + + + + +-------+ + + | Automated | 2024-10-14 | | 0-1 | (missing) | (missing) | | urine | 12:55 | [facility] | | | | | sediment | | - [facility] | | | | | erythrocyte | | [facility] | | | | | count by | | Hospital | | | | | microscopy | | | | | | | (number/high | | | | | | | power | | | | | | | field) | | | | | | + + + +-------+ + + + + | Result panel 90 | + + + + + +-------+ + + | Automated | 2024-10-14 | | >50 | (missing) | (missing) | | urine | 12:55 | [facility] | | | | | sediment | | - [facility] | | | | | leukocyte | | [facility] | | | | | count by | | Hospital | | | | | microscopy | | | | | | | (number/high | | | | | | | power | | | | | | | field) | | | | | | + + + +-------+ + + + + | Result panel 91 | + + + + + +-----+ + + | Automated | 2024-10-14 | | 0 | (missing) | (missing) | | urine | 12:55 | [facility] | | | | | sediment | | - [facility] | | | | | epithelial | | [facility] | | | | | cell count | | Hospital | | | | | by | | | | | | | microscopy | | | | | | | (number/high | | | | | | | power | | | | | | | field) | | | | | | + + + +-----+ + + + + | Result panel 92 | + + + + + + + + + | Crystal | 2024-10-14 | | NONE SEEN | (missing) | (missing) | | typing in | 12:55 | [facility] | | | | | urine | | - [facility] | | | | | sediment by | | [facility] | | | | | light | | Hospital | | | | | microscopy | | | | | | + + + + + + + + + | Result panel 93 | + + + + + +------+ + + | Automated | 2024-10-14 | | 1+ | (missing) | (missing) | | urine | 12:55 | [facility] | | | | | sediment | | - [facility] | | | | | bacteria | | [facility] | | | | | count by | | Hospital | | | | | microscopy | | | | | | | (number/high | | | | | | | power | | | | | | | field) | | | | | | + + + +------+ + + + + | Result panel 94 | + + + + + + + + + | Automated | 2024-10-14 | | NONE SEEN | (missing) | (missing) | | casts count | 12:55 | [facility] | | | | | in urine | | - [facility] | | | | | sediment by | | [facility] | | | | | microscopy | | Hospital | | | | | low power | | | | | | | field | | | | | | | (number/area | | | | | | | ) | | | | | | + + + + + + + + + | Result panel 95 | + + + + + +-------+ + + | Reflexive | 2024-10-14 | | Yes | (missing) | (missing) | | urine | 12:55 | [facility] | | | | | bacterial | [facility] | | [facility] | culture | | [facility] | | [facility] | | | [facility] | | | | + + + +-------+ + + + + | Result panel 96 | + + + + + + + + + | Character | 2024-10-14 | | CLOUDY | (missing) | (missing) | | of Urine | 12:55 | [facility] | | | | | | [facility] | | | | | | [facility] | | | | + + + + + + + + + | Result panel 97 | + + + + + + + + + | Urinalysis | 2024-10-14 | | CLEAN CATCH | (missing) | (missing) | | specimen | 12:55 | [facility] | | | | | collection | [facility] | | [facility] | method | | [facility] | | | | + + + + + + + + + | Result panel 98 | + + + + + + + + + | Glucose | 2024-10-14 | | NEGATIVE | (missing) | (missing) | | [Presence] | 12:55 | [facility] | | | | | in Urine by | | - [facility] | | | | | Test strip | | [facility] | [facility] | | | | + + + + + + + + + | Result panel 99 | + + + + + + + + + | Urine total | 2024-10-14 | | NEGATIVE | (missing) | (missing) | | bilirubin | 12:55 | [facility] | | | | | detection by | | - [facility] | | | | | test strip | | [facility] | [facility] | | | | + + + + + + + + + | Result panel 100 | + + + + + + + + + | Urine | 2024-10-14 | | NEGATIVE | (missing) | (missing) | | ketones | 12:55 | [facility] | | | | | detection by | | - [facility] | | [facility] | | test strip | | [facility] | | | | + + + + + + + + + | Result panel 101 | + + + + + +---------+ + + | Specific | 2024-10-14 | | 1.010 | (missing) | (missing) | | gravity ur | 12:55 | [facility] | | | | | dipstick | [facility] | | | | | | [facility] | | [facility] | [facility] | | | | + + + +---------+ + + + + | Result panel 102 | + + + + + +---------+ + + | Urine | 2024-10-14 | | SMALL | (missing) | (missing) | | hemoglobin | 12:55 | [facility] | | | | | detection by | | - [facility] | | | | | test strip | | [facility] | [facility] | | | | + + + +---------+ + + + + | Result panel 103 | + + + + + +-------+ + + | Urine pH | 2024-10-14 | | 6.0 | (missing) | (missing) | | measurement | 12:55 | [facility] | | | | | by test | [facility] | | | | | strip | | [facility] | | | | + + + +-------+ + + + + | Result panel 104 | + + + + + + + + + | Protein | 2024-10-14 | | NEGATIVE | (missing) | (missing) | | urine test | 12:55 | [facility] | | | | | strip | [facility] | | [facility] | | | [facility] | | | | + + + + + + + Social History + + + + | date | description | facility | + + + + | (no date) | Never smoker | [facility] | | | | [facility] | + + + + Vital Signs No information."
--- OUTSIDE RECORDS SUMMARY | ~2024-11-17 | XMS | Continuity of Care Document ---
Demographics + + + | Address | [address] | | | [place] [address] | + + + | Preferred Language | Unknown | + + + | Marital Status | | + + + | Gnosticist Affiliation | Unknown | + + + | Race | White | + + + | Ethnic Group | Not or | + + + Author + + + | Author | [facility] | + + + | Organization | [facility] | + + + | Address | [address] | | | [place] [address] | + + + | Phone | | + + + Care Team Providers + + + + | Care Bus Operator Name | Role | Phone | + [...] (no date) | No vaccine administered | [facility] | | | | [facility] | + + + + Medications + + + + | date | description | facility | + + + + | (no date) | oxycodone hydrochloride 5 | [facility] | | | MG Oral Tablet | [facility] | + + + + | (no date) | 24 HR mirabegron 25 MG | [facility] | | | Extended Release Oral | [facility] | | | Tablet [Myrbetr | | + + + + | (no date) | diclofenac sodium 75 MG / | [facility] | | | misoprostol 0.2 MG Delayed | [facility] | | | Release | | + + + + | (no date) | apixaban 5 MG Oral Tablet | [facility] | | | [Eliquis] | [facility] | + + + + | (no date) | potassium chloride 8 MEQ | [facility] | | | Extended Release Oral | [facility] | | | Tablet [K-Tab | | + + + + | (no date) | bumetanide 2 MG Oral | [facility] | | | Tablet | [facility] | + + + + | (no ) | doxazosin 2 MG Oral Tablet | [facility] | | | | [facility] | + + + + | (no date) | omeprazole 20 MG Delayed | [facility] | | | Release Oral Capsule | [facility] | + + + + | (no ) | celecoxib 100 MG Oral | [facility] | | | Capsule | [facility] | + + + + | (no ) | magnesium oxide 400 MG | [facility] | | | Oral Tablet [Mag-Ox 400] | [facility] | + + + + | (no ) | lamotrigine 25 MG Oral | [facility] | | | Tablet | [facility] | + + + + | (no ) | cephalexin 500 MG Oral | [facility] | | | Capsule | [facility] | + + + + | 2024-10-14 00:00 | cephalexin 500 MG Oral | [facility] | | | Capsule | [facility] | + + + + | (no ) | ferrous sulfate 325 MG | [facility] | | | Oral Tablet | [facility] | + + + + | () | furosemide 20 MG Oral | [facility] | | | Tablet | [facility] | + + + + | (no ) | gabapentin 100 MG Oral | [facility] | | | Capsule | [facility] | + + + + | () | levofloxacin 750 MG Oral | [facility] | | | Tablet | [facility] | + + + + | (no ) | lisinopril 5 MG Oral | [facility] | | | Tablet | [facility] | + + + + | (no ) | fluoxetine 40 MG Oral | [facility] | | | Capsule | [facility] | + + + + | 2024-08-30 00:00 | nitrofurantoin, | [facility] | | | macrocrystals 25 MG / | [facility] | | | nitrofurantoin, monohy | | + + + + | () | duloxetine 60 MG Delayed | [facility] | | | Release Oral Capsule | [facility] | + + + + | () | atorvastatin 20 MG Oral | [facility] | | | Tablet | [facility] | + + + + | (no date) | cholecalciferol 1.25 MG | [facility] | | | Oral Capsule | [facility] | + + + + | (no date) | nebivolol 10 MG Oral | [facility] | | | Tablet [Bystolic] | [facility] | + + + + | (no date) | calcium carbonate 1250 MG | [facility] | | | / cholecalciferol 200 UNT | [facility] | | | Oral Tab | | + + + + | (no date) | warfarin sodium 5 MG Oral | [facility] | | | Tablet | [facility] | + + + + | (no date) | acetaminophen 325 MG / | [facility] | | | hydrocodone bitartrate 10 | [facility] | | | MG Oral Tab | | + + + + | (no date) | 24 HR metformin | [facility] | | | hydrochloride 500 MG | [facility] | | | Extended Release Oral T | | + + + + | (no date) | 24 HR metoprolol succinate | [facility] | | | 100 MG Extended Release | [facility] | | | Oral Tabl | | + + + + | (no date) | 24 HR metoprolol succinate | [facility] | | | 25 MG Extended Release | [facility] | | | Oral Table | | + + + + | (no date) | metoprolol tartrate 25 MG | [facility] | | | Oral Tablet | [facility] | + + + + | (no date) | levothyroxine sodium 0.05 | [facility] | | | MG Oral Tablet | [facility] | + + + + | (no date) | levothyroxine sodium 0.05 | [facility] | | | MG Oral Tablet [Synthroid] | [facility] | + + + + | (no date) | 12 HR bupropion | [facility] | | | hydrochloride 200 MG | [facility] | | | Extended Release Oral [...]
[2024-11-17 21:54] LABS: BASOPHILS 0.8 % (0.1-1.2); EOSINOPHILS 3.2 % (0.7-5.8); LYMPHOCYTES 15.3 % (19.3-51.7); MCH 28.5 PG (25.6-32.2); MCHC 32.7 g/dL (32.2-35.5); MCV 87.1 fL (79.4-94.8); MONOCYTES 10.0 % (4.7-12.5); NEUTROPHILS 70.4 % (34.0-71.1); RBC 4.18 M/uL (3.93-5.22)
[2024-11-17] MEDS ORDERED: IBLOOD GLUCOSE TEST STRIP 1 EA TEST VI ONE (22:00)
[2024-11-17 22:10] LABS: BLOOD/HGB, URINE SMALL (Negative); KETONE, URINE TRACE (Negative); LEUK ESTERASE, URINE LARGE (negative); NITRITE, URINE POSITIVE (negative)
[2024-11-17 22:12] LABS: ALCOHOL, MEDICAL <3 ng/dL (<3); ALT (SGPT) 10 U/L (14-59); AST (SGOT) 17 U/L (15-37); GLOMERULAR FILTRATION RATE,EST 64 mL/min (>60); PROTEIN, TOTAL 7.0 g/dL (6.4-8.2); UREA NITROGEN 13 mg/dL (7-18)
[2024-11-17 22:15] LABS: EPITHELIAL CELLS, URINE SQUAMOUS 1+ /lpf (0-1+)
[2024-11-17 22:16] LABS: BACTERIA, URINE 4+ /hpf (negative); CASTS, URINE NONE SEEN \\lpf; CRYSTALS, URINE NONE SEEN (0-1+); REFLEX CULTURE, URINE Yes (No)
[2024-11-17 22:26] LABS: AMPHETAMINES, URINE NEGATIVE (NEGATIVE); BARBITURATES, URINE NEGATIVE (NEGATIVE); BENZODIAZEPINE, URINE NEGATIVE (NEGATIVE); CANNABINOID, URINE NEGATIVE (NEGATIVE); COCAINE, URINE NEGATIVE (NEGATIVE); ECSTASY, URINE NEGATIVE (NEGATIVE); FENTANYL, URINE NEGATIVE (NEGATIVE); METHADONE, URINE NEGATIVE (NEGATIVE); OPIATES, URINE NEGATIVE (NEGATIVE); OXYCODONE, URINE NEGATIVE (NEGATIVE); PHENCYCLIDINE, URINE NEGATIVE (NEGATIVE)
[2024-11-17] MEDS ORDERED: FUROSEMIDE 40 MG/4 ML VIAL IV ONE (23:45)
[2024-11-18] VITALS (11 sets, daily range): BP systolic 145–161; BP diastolic 70–98
[2024-11-18] MEDS ORDERED: ACETAMINOPHEN 325 MG TAB PO PRN ×2 (01:00→08:15)
--- NOTE | 2024-11-18 01:54 | NUR ---
REPORT RECEIVED FROM DRIER FEEDER. pt IN BED. TELE #8 ON pt. THIS RN BROUGHT pt TO THE FLOOR. ADMISSION AND ASSESSMENT DONE. VITAL SIGNS DONE. IV ASSESSED, WNL. pt DENIES ANY OTHER NEEDS AT THIS TIME. CALL LIGHT WITHIN REACH. pt HAS REDNESS IN PERIAREA. NEW PUREWICK PLACED. WARM BLANKET PROVIDED. WATER PROVIDED.
--- NOTE | 2024-11-18 03:29 | NUR ---
pt RESTING IN THE BED WITH EYES CLOSED. RR EVEN AND UNLABORED. CALL LIGHT WITHIN REACH.
--- NOTE | 2024-11-18 07:20 | NUR ---
RECEIVED REPORT FROM MANOJ FRANCISCO. PATENT RESTING IN BED WITH EYES CLOSED, UNLABORED BREATHING. NO OTHER NEEDS AT THIS TIME, CALL LIGHT IN REACH, WHITEBOARD UPDATED.
[2024-11-18] MEDS ORDERED: DEXTROSE 5% 1,000 ML IV PRN (08:15)
[2024-11-18] MEDS ORDERED: DEXTROSE 50% 50 ML SYR IV PRN ×2 (08:15)
[2024-11-18] MEDS ORDERED: GLUCAGON,HUMAN RECOMBINANT 1 MG/ML VIAL SUB-Q PRN (08:15)
[2024-11-18] MEDS ORDERED: IBLOOD GLUCOSE TEST STRIP 1 EA TEST XX PRN (08:15)
[2024-11-18] MEDS ORDERED: LAMOTRIGINE100 MG PO (08:53)
[2024-11-18] MEDS ORDERED: PRESERVISION A1 EAC8 PO (08:56)
[2024-11-18] MEDS ORDERED: VITAMIN D350 MC3 PO (08:58)
[2024-11-18] MEDS ORDERED: SYSTANE 0.3-0.415 ML OU (08:58)
[2024-11-18] MEDS ORDERED: A AND D OINTM42.5 GM NAS (08:59)
[2024-11-18] MEDS ORDERED: TYLENOL325 MG PO (09:00)
[2024-11-18] MEDS ORDERED: NYSTATIN CREAM 30 GM TUBE TOP SCH (09:00)
[2024-11-18] MEDS ORDERED: BAZA PROTECT57 GM TOP (09:01)
[2024-11-18] MEDS ORDERED: CORRECTOL5 MG PO (09:02)
[2024-11-18] MEDS ORDERED: LOPERAMIDE2 MG PO (09:05)
[2024-11-18] MEDS ORDERED: NYSTOP60 GM TOP (09:06)
[2024-11-18] MEDS ORDERED: SALONPAS 3.1%-1 EAC1 TOP (09:07)
[2024-11-18] MEDS ORDERED: SENNA8.6 MG PO (09:08)
--- NOTE | 2024-11-18 09:14 | NUR ---
MED REC COMPLETE
--- NOTE | 2024-11-18 09:30 | NUR ---
PHYSICAL THERAPY AND OCCUPATIONAL THERAPY AT BEDSIDE ATTEMPTING TO ASSIST PT IN EATING BREAKFAST, PT HOLDING FOOD IN HER MOUTH AND IS UNABLE TO FOLLOW DIRECTIONS TO SWALLOW. BREAKFAST TRAY TAKEN FROM PT ROOM AND PHYSICAL THERPY UPDATES DR. OWENS.
--- NOTE | 2024-11-18 09:36 | NUR ---
PT PLAN OF CARE DISCUSSED THIS AM IN MDR. PT PLANNED FOR OR TO REPLACE INTERNAL SPONGE FOR WOUND VAC. CM SPOKE WITH PATIENT WITH SPOUSE AT BEDSIDE. PT SITTING UP IN BED, DRINKING WATER WITH STRAW CUP. PT TEARFUL AT TIMES DURING CONVERSATION. PT INFORMED WORKER FROM [facility] WILL BE VISITING ON FRIDAY. CM STATED IF ANY NEEDS OR CONCERNS [facility], TO PLEASE CONTACT [facility]
--- NOTE | 2024-11-18 11:07 | NUR ---
VISITED DURING SPIRITUAL CARE ROUNDS. PT APPEARED TO BE SLEEPING. DID NOT DISTURB. PROVIDED PRAYER.
--- NOTE | 2024-11-18 11:30 | NUR ---
PATIENT IN BED AT THIS TIME, MANAGER RN CHARTED VITALS AND CHECKED BREIF, PATIENT IS NPO, AND NOTHING ELSE NEEDED AT THIS TIME.
[2024-11-18] MEDS ORDERED: PHARMACY RENAL DOSE ADJUSTMENT 1 DOSE MISC PO SCH (12:00)
[2024-11-18] MEDS ORDERED: INSULIN LISPRO 100 UNIT/ML ML SUB-Q SCH ×2 (12:00→20:00)
[2024-11-18] MEDS ORDERED: IBLOOD GLUCOSE TEST STRIP 1 EA TEST VI SCH ×2 (12:00→20:00)
--- NOTE | 2024-11-18 12:20 | NUR ---
PT REORIENTED TO UNIT ANG WHY SHE IS HERE. REASSURANCE PROVIDED, NO OTHER NEEDS AT THIS TIME. CALL LIGHT IN REACH.
--- NOTE | 2024-11-18 13:39 | NUR ---
PATIENT CONFUSED AND UNABLE TO PROVIDE RELIABLE INFORMATION FOR DISCHARGE PLANNING. CALL PLACED TO SON, SPENCER, WHO IS POA. HE STATED HE WOULD LIKE FOR PATIENT TO RETURN TO [facility] ([facility]). LEFT AT [facility] TO CONFIRM PATIENT IS ABLE TO RETURN UPON DISCHARGE CONSENT OBTAINED FOR MEDICAL RECORS FROM [facility]. CM WILL REMAIN AVAILABLE AND ASSIST WITH ANY DISCHARGE NEEDS.
--- NOTE | 2024-11-18 13:40 | NUR ---
PATIENT RESTING IN BED WITH EYES CLOSED, UNLABORED BREATHING. CALL LIGHT IN REACH.
--- NOTE | 2024-11-18 14:19 | EKG ---
[facility] [address] [place] [address] Signed Atrial fibrillation N[address]pecific ST and T wave abnormality Abnormal ECG When compared with ECG of 14-MAR-2022 17:31, Atrial fibrillation has replaced Atrial flutter Nonspecific T wave abnormality, worse in Anterolateral leads Confirmed by Keshav Owens MD () on 11/18/2024 2:18:50 PM Electronically Signed By: KESHAV OWENS MD 11/18/24 1419 PATIENT NAME: MAGUE CAMPBELL Electrocardiogram DATE OF : 44 PHYSICIAN: KESHVA OWENS MD REPORT #: [id number] REPORT IS CONFIDENTIAL AND NOT TO BE RELEASED WITHOUT AUTHORIZATION
--- NOTE | 2024-11-18 14:38 | NUR ---
UR CLINICAL REVIEW: 2 MN FOR [facility]ERSALUS-PER SENIOR IOS DEVELOPER MEETS INPT FOR UTI WITH AMS AND NEED FOR IV ABX. MEDICARE INPT 11/18/24 @ 0828 ORDER MATCHES REG NO AUTH REQUIRED PER MEDICARE GUIDELINES DISCHARGE TO [facility] WHEN STABLE
--- NOTE | 2024-11-18 14:55 | NUR ---
PATIENT IS IN BED AT THIS TIME, WATERPROOFING SUPERVISOR CHARTED VITALS AND OUTPUT, GOT MOUTH SWABS AND CHAPSTICK FOR PATIENT, ROTATED HER, CHECKED BREIF, CALL LIGHT WITH IN REACH AND NOTHING ELSE NEEDED AT THIS TIME.
--- NOTE | 2024-11-18 17:42 | NUR ---
PATIENT IS IN BED AT THIS TIME, SENIOR DIRECTOR CREATIVE SERVICES CHARTED VITALS AND I&O'S, CHANGED BREIF, CALL LIGHT WITH IN REACH, AND NOTHING ELSE NEEDED AT THIS TIME.
--- NOTE | 2024-11-18 17:54 | NUR ---
COTTON BAG SEWER CHANGED PATIENTS PUREWICK AND GOT A NEW BREIF. CALL LIGHT WITH IN REACH AND NOTHING ELSE NEEDED AT THIS TIME.
--- NOTE | 2024-11-18 19:30 | NUR ---
REPORT RECEIVED FROM [place] RN. PATIENT RESTING WITH EYES CLOSED, RESPIRATIONS EVEN AND UNLABORED. NO NEEDS IDENTIFIED, CALL LIGHT IN REACH
--- NOTE | 2024-11-18 20:29 | NUR ---
VS OBTAINED AND RECORDED, SCHEDULED INSULIN GIVEN PER ORDER. PATIENT RESTING COMFORTABLE IN BED, DENIES NEEDS. RESPIRATIONS EVEN AND UNLABORED, DENIES ANY PAIN. PATIENT IS NPO PER ORDER. ANSWERS CORRECTLY TO ORIENTATION QUESTIONS OF SELF AND PLACE. DENIES FURTHER NEEDS, CALL LIGHT IN REACH
--- NOTE | 2024-11-18 21:15 | NUR ---
IV FLUSHED, PAINFUL TO PATIENT WITH FLUSH AND SIGNS OF INFLAMMATION AT INSERTION SITE. LEAKING WELL. NEW IV PLACED, PREVIOUS IV DISCONTINUED, IV CATH TIP WNL.
--- NOTE | 2024-11-18 21:35 | NUR ---
SCHEDULED MEDICATION GIVEN PER ORDER. PATIENT ANXIOUS, REASSURED. RESPIRATIONS EVEN AND UNLABORED. NO FURTHER NEEDS, CALL LIGHT IN REACH
--- NOTE | 2024-11-18 22:02 | NUR ---
PATIENT CALLING OUT FOR HELP IN ROOM, REPORTS PAIN WITH HER BAND RUBBING ON HER IV SITE. PATIENT ANXIOUS AND TEARFUL, REASSURED. IV MEDICATION INFUSING PER ORDER WITHOUT DIFFICULTY. RESPIRATIONS EVEN AND UNLABORED. NO FURTHER NEEDS, CALL LIGHT IN REACH
--- NOTE | 2024-11-18 22:15 | NUR ---
IV MEDICATION COMPLETE, SALINE LOCKED. PATIENT REMAINS ANXIOUS, REASSURED. RESPIRATIONS EVEN AND UNLABORED. NO NEEDS AT THIS TIME, CALL LIGHT IN REACH
[2024-11-19] VITALS (11 sets, daily range): BP systolic 139–169; BP diastolic 72–92
--- NOTE | 2024-11-19 00:36 | NUR ---
ROUNDED ON PATIENT, PATIENT RESTING WITH EYES CLOSED, RESPIRATIONS EVEN AND UNLABORED. NO NEEDS IDENTIFIED, CALL LIGHT IN REACH
--- NOTE | 2024-11-19 01:55 | NUR ---
VS OBTAINED AND RECORDED. PATIENT RESTING. CBG OBTAINED, RECORDED. RESPIRATIONS EVEN AND UNLABORED. NO FURTHER NEEDS, CALL LIGHT IN REACH
--- NOTE | 2024-11-19 04:42 | NUR ---
ROUNDED ON PATIENT, PATIENT RESTING WITH EYES CLOSED, RESPIRATIONS EVEN AND UNLABORED. NO NEEDS IDENTIFIED, CALL LIGHT IN REACH
[2024-11-19 05:51] LABS: BASOPHILS 1.0 % (0.1-1.2); EOSINOPHILS 2.2 % (0.7-5.8); LYMPHOCYTES 17.4 % (19.3-51.7); MCH 28.5 PG (25.6-32.2); MCHC 32.8 g/dL (32.2-35.5); MCV 86.9 fL (79.4-94.8); MONOCYTES 12.8 % (4.7-12.5); NEUTROPHILS 66.3 % (34.0-71.1); RBC 4.59 M/uL (3.93-5.22)
[2024-11-19 06:06] LABS: ALT (SGPT) 10.0 U/L (14-59); AST (SGOT) 17.0 U/L (15-37); GLOMERULAR FILTRATION RATE,EST 65.0 mL/min (>60); PHOSPHORUS, INORGANIC 3.8 mg/dL (2.5-4.9); PROTEIN, TOTAL 7.7 g/dL (6.4-8.2); UREA NITROGEN 20.0 mg/dL (7-18)
--- NOTE | 2024-11-19 06:35 | NUR ---
PATIENT REPOSITIONED SELF, SIDEWAYS IN BED. BED ALARM HAS BEEN ON THROUGHOUT THE NIGHT. PATIENT REPOSITIONED, BOOSTED IN BED. VS OBTAINED AND RECORDED. INTAKE AND OUTPUT DOCUMENTED. PATIENT ORIENTED TO SELF, WOKE FROM DEEP SLEEP SO SHE REMAINS DROWSY, REPLIES "I DONT KNOW" TO ALL QUESTIONS OTHER THAN SELF. REQUESTS TO GO BACK TO SLEEP. BED ALARM ON, CALL LIGHT IN REACH.
--- NOTE | 2024-11-19 08:57 | NUR ---
SPOKE WITH NURSE (BINA) AT [facility]. STATES THAT THE PATIENT BASELINE PRIOR WAS A&OX3 TO 4 SOMETIMES. WALKS WITH WALKER TO THE RESTROOM. INCONTINENT OF URINE. ALSO SPOKE ABOUT PATIENT USING 4 WHEEL WALKER A WHEELCHAIR AND HAS FALLEN OFF OF IT. REQUESTING A WHEELCHAIR FOR THE PATIENT.
[2024-11-19] MEDS ORDERED: POTASSIUM CHLORIDE 40 MEQ,LIDOCAINE HCL 1% 40 MG in DEXTROSE 5% 250 ML IV ONE (09:00)
--- NOTE | 2024-11-19 09:49 | NUR ---
PATIENT IS IN HER BED AT THIS TIME, FILTERS ASSEMBLER CHARTED VITALS AND I& O'S, CALL LIGHT WITHIN REACH AND NOTING ELSE NEEDED AT THIS TIME.
--- NOTE | 2024-11-19 11:31 | NUR ---
VISITED DURING SPIRITUAL CARE ROUNDS. [place] PLEASANT BUT CONFUSED, UNABLE TO RECALL AGES OF ADULT CHILDREN, BUT KNEW NAMES WELL THOSE OF EXTENDED FAMILY. NO IMMEDIATE NEEDS. EQUITY RESEARCH ANALYST PROVIDED SUPPORTIVE PRESENCE, PRAYER.
--- NOTE | 2024-11-19 11:31 | NUR ---
Patient passed bedside sallow eval. Updated Dr. Martinez-new orders obtained to cancel ST order, advance diet to 60g carb and changed current sliding scale insulin and blood sugar checks to ac/hs schedule. Orders placed at this time.
[2024-11-19] MEDS ORDERED: IBLOOD GLUCOSE TEST STRIP 1 EA TEST VI SCH (12:00)
[2024-11-19] MEDS ORDERED: INSULIN LISPRO 100 UNIT/ML ML SUB-Q SCH (12:00)
--- NOTE | 2024-11-19 13:30 | NUR ---
Patient sitting up in chair, no acute distress. Snack provided to patient. No current needs, personal supplies and call light within reach.
--- NOTE | 2024-11-19 14:45 | NUR ---
PATIENT WAS IN HER CHAIR, I AND MANOJ SERRANO ASSSISTED PATIENT BACK TO BED, I CHARTED HER VITALS AND I&O'S, CHANGED HER PUREWICK AND BREIF, CALL LIGHT WITH IN REACH AND NOTHING ELSE NEEDED AT THIS TIME.
--- NOTE | 2024-11-19 16:19 | NUR ---
Patient resting in bed, eyes closed, respirations non labored. Patient has no distress. Bed alarm intact.
--- NOTE | 2024-11-19 18:06 | NUR ---
PATIENT IS IN BED AT THIS TIME, INTAKE ASSESSOR CHANGED HER BREIF AND PUREWICK, CHARTED VITALS AND I&O'S, CALL LIGHT WITH IN REACH AND NOTHING ELSE NEEDED AT THIS TIME.
--- NOTE | 2024-11-19 19:10 | NUR ---
REPORT RECEIVED FROM MANOJ MENSAH. PATIENT RESTING IN BED WITH EYES CLOSED, RESPIRATIONS EVEN AND UNLABORED NO SIGNS OF DISTRESS. BED ALARM SET, BELONGINGS WITHIN REACH. NO NEEDS IDENTIFIED AT THIS TIME. CALL LIGHT IN REACH.
--- NOTE | 2024-11-19 21:36 | NUR ---
ASSESSMENT COMPLETED. SCHEDULED INSULIN GIVEN. SIGNS ON INFILTRATION UPON FLUSHING IV SITE. MULTIPLE FAILED ATTEMPS BY THIS RN AND MANOJ BRYANT. FLOAT NURSE DAIVN CALLED FOR ASSISTANCE AND ABLE TO PLACE IV. PATIENT TOLERATED WELL. SCHEDULED MEDICATIONS GIVEN PER ORDER. KARON CARE PROVIDED, CIERAWICK AND BREIF CHANGED. NO FURTHER NEEDS, CALL LIGHT IN REACH.
[2024-11-20] VITALS (8 sets, daily range): BP systolic 128–166; BP diastolic 71–86
--- NOTE | 2024-11-20 00:48 | NUR ---
ROUNDED ON PATIENT, LAYING ON BACK RESITNG WITH EYES CLOSED IN BED, RESPIRATIONS EVEN AND UNLABORED. NO NEEDS IDENTIFIED AT THIS TIME. CALL LIGHT IN REACH.
--- NOTE | 2024-11-20 02:41 | NUR ---
ROUNDED ON PATIENT, RESTING IN BED SUPINE WITH EYES CLOSED. RESPIRATIONS EVEN AND UNLABORED. NO NEEDS IDENTIFIED AT THIS TIME. CALL LIGHT IN REACH.
--- NOTE | 2024-11-20 05:07 | NUR ---
VS/I&O'S AND FOCUSED ASSESSMENT COMPLETED. PERICARE PERFORMED AND NEW PUREWICK PLACED. PATIENT REPOSITIONED IN BED WITH ASSISTANCE FROM SHAMIR DEL TORO. PATIENT BELONGINGS AND CALL LIGHT IN REACH, BED ALARM SET. PATIENT DENIES NEEDS AT THIS TIME.
[2024-11-20 05:28] LABS: BASOPHILS 0.9 % (0.1-1.2); EOSINOPHILS 3.4 % (0.7-5.8); LYMPHOCYTES 17.6 % (19.3-51.7); MCH 28.1 PG (25.6-32.2); MCHC 32.1 g/dL (32.2-35.5); MCV 87.7 fL (79.4-94.8); MONOCYTES 13.5 % (4.7-12.5); NEUTROPHILS 64.4 % (34.0-71.1); RBC 4.23 M/uL (3.93-5.22)
[2024-11-20 05:49] LABS: ALT (SGPT) 13.0 U/L (14-59); AST (SGOT) 27.0 U/L (15-37); GLOMERULAR FILTRATION RATE,EST 64.0 mL/min (>60); PROTEIN, TOTAL 6.8 g/dL (6.4-8.2); UREA NITROGEN 19.0 mg/dL (7-18)
--- NOTE | 2024-11-20 07:56 | NUR ---
Patient left unit for stat CT scan. Patient on 3L oxygen per oxymask, sp02 93%.
[2024-11-20] MEDS ORDERED: PANTOPRAZOLE SODIUM 40 MG TABEC PO SCH (09:00)
[2024-11-20] MEDS ORDERED: DULOXETINE HCL 60 MG CAP PO SCH (09:00)
[2024-11-20] MEDS ORDERED: lamoTRIgine 100 MG TAB PO SCH (09:00)
[2024-11-20] MEDS ORDERED: FUROSEMIDE 20 MG TAB PO SCH (09:00)
--- NOTE | 2024-11-20 12:19 | NUR ---
Patient awake, alert to self and place. Patient reports she did not sleep well last night, she reports she wants to rest after lunch. Patient sitting up eating her lunch, no distress. Bed remains in low position, alarm intact.
[2024-11-20] MEDS ORDERED: ATORVASTATIN 20 MG TAB PO SCH (17:00)
--- NOTE | 2024-11-20 17:51 | NUR ---
Patient awake in bed, alert to self and place. Patient in pleasant mood, she denies pain. Patient provided with a snack per her request. Personal supplies and call light within reach.
--- NOTE | 2024-11-20 19:28 | NUR ---
RECIEVED REPORT FROM MANOJ MENSAH. PATIENT LAYING IN BED AWAKE AND ALERT. IV SALINE LOCKED. SHAMIR BLEVINS IN ROOM PROVIDING NIGHT CARES. PATIENT DENIES NEEDS AT THIS TIME. CALL LIGHT IN REACH.
--- NOTE | 2024-11-20 19:29 | NUR ---
PATIENT LAYING IN BED. PATIENT WAS PROVIDED WITH A WARM WASHCLOTH. BED ALARM ON, CALL LIGHT WITHIN REACH AND NO FURTHER NEEDS AT THIS TIME.
--- NOTE | 2024-11-20 20:31 | NUR ---
VS AND I&O'S COMPLETED AND DOCUMENTED. SCHEDULED MEDICATIONS GIVEN. IV PATENT WITHOUT COMPLICATIONS. ASSESSMENT PERFOMED. COMPRESSIONS STOCKINGS ON, SCD'S PLACED AND CIRCULATING. SKIN CLEANED AND NYSTATIN APPLIED. ANTBIOTIC RUNNING WITHOUT COMPLICATION. PUREWICK IN PLACE AND SUCTION ON. NO OTHER NEEDS IDENTIFIED AT THIS TIME. CALL LIGHT IN REACH.
--- NOTE | 2024-11-20 21:36 | NUR ---
ANTIBITOIC DONE INFUSING, IV SALINE LOCKED. PATIENT RESTING COMFORTABLY, CALL LIGHT IN REACH.
--- NOTE | 2024-11-20 22:36 | NUR ---
ROUNDED ON PATIENT, RESTING ON BACK IN BED WITH EYES CLOSED. RESPIRATIONS EVEN AND UNLABORED. NO NEEDS IDENTIFIED AT THIS TIME. CALL LIGHT IN REACH. SCD'S CIRCULATING.
[2024-11-21] VITALS (7 sets, daily range): BP systolic 132–142; BP diastolic 66–88
--- NOTE | 2024-11-21 01:38 | NUR ---
ROUNDED ON PATIENT, LAYING SUPINE IN BED, RESPIRATIONS EVEN AND UNLABORED, SCD'S CIRCULATING. NO NEEDS IDENTIFIED AT THIS TIME. CALL LIGHT IN REACH.
--- NOTE | 2024-11-21 03:43 | NUR ---
ROUNDED ON PATIENT, LAYING SUPINE IN BED, RESTING WITH EYES CLOSED, RESPIRATIONS EVEN AND UNLABORED. SCD'S ON AND CIRCULATING, NO NEEDS IDENTIFIED AT THIS TIME. CALL LIGHT IN REACH.
[2024-11-21 05:18] LABS: BASOPHILS 1.1 % (0.1-1.2); EOSINOPHILS 4.3 % (0.7-5.8); LYMPHOCYTES 14.8 % (19.3-51.7); MCH 28.4 PG (25.6-32.2); MCHC 32.2 g/dL (32.2-35.5); MCV 88.2 fL (79.4-94.8); MONOCYTES 12.4 % (4.7-12.5); NEUTROPHILS 67.1 % (34.0-71.1); RBC 4.16 M/uL (3.93-5.22)
[2024-11-21 05:32] LABS: GLOMERULAR FILTRATION RATE,EST 70.0 mL/min (>60); UREA NITROGEN 14.0 mg/dL (7-18)
--- NOTE | 2024-11-21 05:50 | NUR ---
FOCUSED ASSESSMENT COMPLETED. KARON CARE PERFORMED AND NEW PUREWICK PLACED. PATINET LAYING SUPINE IN BED, GIVEN WARM BLANKET. SCD'S ON AND CIRCULATING. PATIENT DENIES NEEDS AT THIS TIME. CALL LIGHT IN REACH.
--- NOTE | 2024-11-21 07:08 | NUR ---
VERBAL REPORT RECIEVED BY MANOJ BRYANT. PATIENT RESTING IN BED EYES CLOSED, BREATHING EVEN AND UNLABORED. SEIZURE PADS AND FALL PRECAUTIONS IN PLACE FOR PATIENT SAFETY. CALL LIGHT IN REACH. NO NEEDS AT THIS TIME.
--- NOTE | 2024-11-21 07:50 | NUR ---
THIS BIOFUELS PRODUCTION TECHNICIAN IN TO DO MORNING BLOOD SUGAR. BLOOD SUGAR TAKEN AND CHARTED. PATIENT REPOSITIONED IN BED AND SET UP FOR BREAKFAST. DEPENDS CHECKED AND DRY. BED ALARM ON. WHITE BOARD UPDATED. CALL LIGHT IN REACH. NO FURTHER NEEDS AT THIS TIME.
--- NOTE | 2024-11-21 08:37 | NUR ---
MORNING ASSESSMENT COMPLETE. PATIENT SITTING UP IN BED EATING BREAKFAST. PATIENT AX0 X4. WHEN FLUSHING IV PAINFUL, ATTEMPTED TO GET 100MG OUT 0F 500MG IV KEPPRA, CHARGE NURSE NOTIFIED TO NOTIFY MD IN MORNING MEETING. SEIZURE PADS AND FALL PRECUATIONS IN PLACE FOR PATIENT SAFETY. CALL LIGHT IN REACH. NO FURTHER NEEDS AT THIS TIME.
--- NOTE | 2024-11-21 10:08 | NUR ---
PATIENT SITTING UP IN BED AT THIS TIME. VITALS AND I&O'S DONE AND CHARTED. WARM WASHCLOTH GIVEN. AM CARE DONE. BED ALARM ON. CALL LIGHT IN REACH. NO FURTHER NEEDS AT THIS TIME.
--- NOTE | 2024-11-21 11:55 | NUR ---
THIS FINANCIAL CONSULTANT AND RN PANCHO IN ROOM TO ASSIST PATIENT. PATIENT UP TO CHAIR, 2PA FWW. LUNCH IN ROOM. CALL LIGHT IN REACH. LINENS CHANGED. NO FURTHER NEEDS AT THIS TIME.
--- NOTE | 2024-11-21 13:18 | NUR ---
PT UP TO CHAIR. ADMINISTERED INSULIN PER EMAR.
--- NOTE | 2024-11-21 13:23 | NUR ---
PATIENT IN CHAIR AT THIS TIME. VITALS AND I&O'S DONE AND CHARTED. CALL LIGHT IN REACH. NO FURTHER NEEDS AT THIS TIME.
--- NOTE | 2024-11-21 14:27 | NUR ---
PATIENT UP IN RECLINER DENIES ANY NEEDS AT THIS TIME. CHAIR ALARM ON AND FALL PRECUATIONS IN PLACE FOR PATIENT SAFETY. CALL LIGHT IN REACH. NO FURTHER NEEDS AT THIS TIME.
--- NOTE | 2024-11-21 16:18 | NUR ---
IN ROOM WITH PATIENT. PATIENT SITTING UP IN RECLINER TALKING ON THE PHONE. FALL PRECAUTIONS AND CHAIR ALARM ON FOR PATIENT SAFETY. FRESH ICE WATER PROVIDED. CALL LIGHT IN REACH. NO FURTHER NEEDS AT THIS TIME.
[2024-11-21] MEDS ORDERED: levoFLOXacin 250 MG TAB PO SCH (16:48)
--- NOTE | 2024-11-21 17:20 | NUR ---
IN THE ROOM WITH PATIENT. PATIENT SITTING UP IN RECLINER EATING DINNER, WATCHING TV. FALL PRECAUTIONS IN PLACE, AND CHAIR ALARM ON FOR PATIENT SAFETY. CALL LIGHT IN REACH. NO FURTHER NEEDS AT THIS TIME.
--- NOTE | 2024-11-21 18:23 | NUR ---
IN TO DO VITALS AND I&O'S, DONE AND CHARTED. PATIENT TRANSFERED TO BED FROM CHAIR, 2PA FWW. KARON CARE DONE. SKIN CARE DONE. NEW DEPENDS AND PURE WICK IN PLACE. CALL LIGHT IN REACH. BED ALARM ON. NO FURTHER NEEDS AT THIS TIME.
--- NOTE | 2024-11-21 18:28 | NUR ---
PATIENT TRANSFERED TO BED VIA 2PA W/ FWW. NEW BRIEF AND PUREQICK APPLIED. KARON CARE PERFORMED BY SHAMIR HUERTA AND MANOJ NUÑEZ. FRESH WATER PROVIDED. NO FURTHER NEEDS AT THIS TIME. FALL PRECAUTIONS, SEIZURE PADS, AND BED ALARM ON FOR PATIENT SAFETY. CALL LIGHT IN REACH.
--- NOTE | 2024-11-21 19:17 | NUR ---
REPORT RECEIVED FROM MANOJ CONWAY AND MANOJ GONZALEZ. PATIENT LAYING SUPINE IN BED WITH LIGHTS DIM. PATIENT IS AWAKE AND ALERT AND ABLE TO ANSWER QUESTIONS APPROPRIATLY. SCD'S ON. PATIENT DENIES NEEDS AT THIS TIME. CALL LIGHT IN REACH.
--- NOTE | 2024-11-21 20:37 | NUR ---
SCHEDULED MEDICATIONS GIVEN PER ORDERS. PATIENT ABLE TO SWALLOW ORAL MEDICATION WITHOUT DIFFICULTY. NYSTATIN CREAN APPLIED TO CLEAN SKIN. ASSESSMENT COMPLETED, PATIENT WAS ABLE TO ANSWER ORIENTATION QUESTIONS CORRECTELY HOWEVER IS STILL FORGETFUL. SCD'S ON AND CIRCULATING, COMPRESSION SOCKS ON. PATIENT LYING SUPINE, DENIES OTHER NEEDS AT THIS TIME. CALL LIGHT AND BELONGINGS IN REACH.
[2024-11-21] MEDS ORDERED: levETIRAcetam 500 MG TAB PO SCH (21:00)
--- NOTE | 2024-11-21 23:08 | NUR ---
PATIENT RESTING SUPINE IN BED WITH EYES OPEN. PATIENT STATES SHE IS COMFORTABLE AND IN NO PAIN. DENIES NEEDS AT THIS TIME. SCD'S ON AND CIRCULATING. CALL LIGHT IN REACH.
--- NOTE | 2024-11-22 00:48 | NUR ---
ROUNDED ON PATIENT, RESTING SUPINE IN BED WITH EYES CLOSED, RESPIRATIONS EVEN AND UNLABORED, AUDIBLE SNORING. SCD'S ON AND CIRCULATING. NO NEEDS IDENTIFIED AT THIS TIME. CALL LIGHT IN REACH.
--- NOTE | 2024-11-22 02:30 | NUR ---
ROUNDED ON PATIENT, LAYING SUPINE IN BED, SCD'S ON AND CIRCULATING, PUREWICK IN PLACE AN SUCTION ON. PATIENT RESTING WITH EYES CLOSED, RESPIRATIONS EVEN AND UNLABORED WITH AUDIBLE SNORING. NO NEEDS IDENTIFED AT THIS TIME. CALL LIGHT IN REACH.
--- NOTE | 2024-11-22 03:59 | NUR ---
ROUNDED ON PATIENT, LAYING SUPINE IN BED WITH EYES CLOSED, RESPIRATIONS EVEN AND UNLABORED WITH AUDIBLE SORING, SCD'S ON AND CICULATING, PUREIWCK IN PLACE. NO NEEDS IDENTIFIED AT THIS TIME. CALL LIGHT IN REACH.
[2024-11-22 05:26] VITALS: BP 157/90
--- NOTE | 2024-11-22 05:26 | NUR ---
VS AND I&O'S COMPLETED AND DOCUMENTED. KARON CARE PERFORMED AND NEW PUREWICK PLACED. PATIENT WAS EASILY AROUSED WITH VERBAL NOTIFICATION. COMPRESSION STOCKINGS ON, SCD'S ON AND CIRCULATING. PATIENT REPOSITIONED IN BED. FOCUSED ASSESSMENT COMPLETED. PATIENT DENIES NEEDS AT THIS TIME. BELONGINGS AND CALL LIGHT IN REACH.
[2024-11-22 05:27] VITALS: BP 157/90
--- NOTE | 2024-11-22 07:08 | NUR ---
VERBAL REPORT RECIEVED BY MANOJ BRYANT. PATIENT RESTING IN BED EYES CLOSED, BREATHING EVEN AND UNLABORED. FALL PRECUATIONS, SEIZURE PADS, AND BED ALARM ON FOR PATIENT SAFETY. CALL LIGHT IN REACH, NO NEEDS AT THIS TIME.
--- NOTE | 2024-11-22 08:14 | NUR ---
MORNING MEDICATIONS ADMINISTERED. PATIENT SITTING UP IN CHAIR EATING BREAKFAST. FRESH ICE WATER PROVIDED. FALL PRECAUTIONS, SEIZURE PADS IN PLACE AND BED ALARM ON FOR PATIENT SAFETY. PATIENT IS ALERT AND ORIENTED TO ALL THIS MORNING. NO FURTHER NEEDS AT THIS TIME, CALL LIGHT IN REACH.
[2024-11-22 09:37] VITALS: BP 161/74
--- NOTE | 2024-11-22 09:42 | NUR ---
IPA WITH FWW TO THE BATHROOM. PATIENT PERFORMED KARON CARE. HAIR WAS BRUSHED AND FACE WASHED WITH ASSISTANCE. PATIENT'S BED LINENS WERE CHANGED. PATIENT IS SITTING IN THE RECLINER WITH THE CHAIR ALARM SET. CALL LIGHT AND PERSONAL ITEMS ARE WITHIN REACH.
--- NOTE | 2024-11-22 10:11 | NUR ---
INTO SEE PATIENT. PATIENT WILL GO BACK TO [facility] AT 1300. PATIENT COMPLETED IMM. WC TO TAKE TO FACILITY. NO FUTHER CM NEEDS.
--- NOTE | 2024-11-22 10:47 | NUR ---
PATIENT UP IN RECLINER. FRESH ICE WATER PROVIDED. FALL PRECAUTIONS IN PLACE AND CHAIR ALARM ON FOR PATIENT SAFETY. DISCUSSED POC. NO NEEDS AT THIS TIME. CALL LIGHT IN REACH.
[2024-11-22] MEDS ORDERED: CEFPODOXIME PR200 MG PO (11:02)
--- NOTE | 2024-11-22 11:46 | NUR ---
PATIENT UP IN RECLINER EAGER TO BE DISCHARGED. FAMILY IN THE ROOM AT THIS TIME. FALL PRECAUTIONS AND CHAIR ALARM ON FOR PATIENT SAFETY. DENIES ANY NEEDS AT THIS TIME. CALL LIGHT IN REACH.
[2024-11-22 12:16] VITALS: BP 137/81
== END 2024-11-22 12:55 | disposition home or self-care (01) | DRG 689 ==
LOC: ED 21:33 → MS 21:34
PROVIDERS: Internal Medicine; Student in an Organized Health Care Education/Training Program; ADMIT Family Medicine; ATTEND Family Medicine
DX: N39.0 Urinary tract infection, site not specified (principal); G93.41 Metabolic encephalopathy; J84.9 Interstitial pulmonary disease, unspecified; I11.0 Hypertensive heart disease with heart failure; I50.9 Heart failure, unspecified; I48.91 Unspecified atrial fibrillation; M19.90 Unspecified osteoarthritis, unspecified site; E11.9 Type 2 diabetes mellitus without complications; F03.90 Unspecified dementia, unspecified severity, without behavioral disturbance, psychotic disturbance, mood disturbance, and anxiety; B96.20 Unspecified Escherichia coli [E. coli] as the cause of diseases classified elsewhere; Z90.710 Acquired absence of both cervix and uterus; Z87.19 Personal history of other diseases of the digestive system; Z98.890 Other specified postprocedural states; Z88.8 Allergy status to other drugs, medicaments and biological substances; Z79.2 Long term (current) use of antibiotics; Z79.4 Long term (current) use of insulin; Z79.890 Hormone replacement therapy; Z79.899 Other long term (current) drug therapy; Z79.01 Long term (current) use of anticoagulants; Z86.73 Personal history of transient ischemic attack (TIA), and cerebral infarction without residual deficits; Z88.2 Allergy status to sulfonamides
CPT/HCPCS: 36415; 51701; 70450; 71045; 80048; 80053; 80307; 81001; 82140; 83605; 83735; 83880; 84100; 84443; 84484; 85025; 87040; 87088; 92523; 93005; 93010; 93306; 96365; 96375; 97162; 97166; 97530; 97535; 99285-25; A9270; G0378; G0480; J0696; J1815; J1938; J1953; J3480; J3490; J7060